=== PATIENT | female | born 1990 | race Caucasian/White ===

== ENCOUNTER 2022-10-12 12:02 | Emergency (ER) | payer MEDICAID, SELFPAY ==
[2022-10-12 12:17] VITALS: BP 153/71; PULSE 97; RESP 20; TEMP 37.1; O2SAT 99; BMI 21.6
--- NOTE | 2022-10-12 12:43 | ED_ITS ---
HPI - General Adult General Chief complaint: Skin/Abscess/Foreign Body Stated complaint: Rash on arms and torso Time Seen by Provider: 10/12/22 12:12 History of Present Illness HPI narrative: Patient is a very pleasant 31-year-old female who has had a rash in her armpits and on her arms and abdomen on and off for the last couple of weeks. She has been to the urgent care couple of times, she tried some Keflex, topical clotrimazole , and even hydrocortisone topically. She reports a red raised rash in her armpits that started and she thought initially was just a burn from shaving. But now she has continued to have raised reddened area and itchy in her armpits and as the other areas mention. No breathing trouble no throat swelling no tongue swelling. She has been generally healthy she is nondiabetic Related Data Home Medications Medication Instructions Recorded Confirmed cephalexin 500 mg capsule 500 mg PO QID 10/12/22 10/12/22 clonidine HCl 0.1 mg tablet 0.1 mg PO BID 10/12/22 10/12/22 fluoxetine 40 mg capsule 40 mg PO DAILY 10/12/22 10/12/22 hydroxyzine HCl 25 mg tablet 25 mg PO Q8H PRN 10/12/22 10/12/22 hyoscyamine sulfate 0.125 mg 0.125 mg sublingual QID PRN 10/12/22 10/12/22 sublingual tablet mirtazapine 7.5 mg tablet 7.5 mg PO QPM 10/12/22 10/12/22 nystatin 100,000 unit/gram topical topical BID 10/12/22 cream rizatriptan 5 mg disintegrating 5 mg PO BID PRN migraine 10/12/22 10/12/22 tablet Previous Rx's Medication Instructions Recorded ciprofloxacin HCl 250 mg tablet 250 mg PO BID #14 tabs 10/12/22 (Cipro) prednisone 20 mg tablet 20 mg PO BID #10 tabs 10/12/22 Allergies Allergy/AdvReac Type Severity Reaction Status Date / Time No Known Drug Allergies Allergy Verified 10/12/22 12:23 Review of Systems Status of ROS: Reports: 6 or more systems reviewed and unremarkable except as noted in History and below PFSH PFS Social History Smoking Status: Never smoker Do you use any of these nicotine containing products: Vaping Products Second hand tobacco smoke exposure: No How often do you have a drink containing alcohol: never AUDIT-C Alcohol total score: 0 Non-prescribed substance use: denies use Exam Narrative: Exam Narrative: Objective: Vital signs unremarkable in general patient is in no apparent distress Patient has a reddened dermatitic type rash in her armpits bilaterally, has almost allergic look but is not urticarial. Couple of small dots on her forearms and in her abdomen area noted as well. Const: Vital Signs, click to edit/add: Vital Signs - 24 hr 10/12/22 12:17 Temperature 98.8 F Pulse Rate [Pulse Oximeter] 97 Respiratory Rate 20 Blood Pressure [Ri ght Upper Arm] 153/71 H Pulse Oximetry 99 Oxygen Delivery Me thod Room Air Course Vital Signs Vital signs: Initial Vital Signs Temperature 98.8 F 10/12/22 12:17 Temperature Source Temporal Artery Scan 10/12/22 12:17 Pulse Rate 97 10/12/22 12:17 Respiratory Rate 20 10/12/22 12:17 Blood Pressure 153/71 H 10/12/22 12:17 Blood Pressure Mean 98 10/12/22 12:17 Blood Pressure Position Sitting 10/12/22 12:17 Pulse Oximetry 99 10/12/22 12:17 Oxygen Delivery Method 10/12/22 12:17 Vital Signs Temperature 98.8 F 10/12/22 12:17 Pulse Rate 97 10/12/22 12:17 Respiratory Rate 20 10/12/22 12:17 Blood Pressure 153/71 H 10/12/22 12:17 Pulse Oximetry 99 10/12/22 12:17 Oxygen Delivery Method 10/12/22 12:17 Temperature 98.8 F 10/12/22 12:17 Pulse Rate 97 10/12/22 12:17 Respiratory Rate 20 10/12/22 12:17 Blood Pressure 153/71 H 10/12/22 12:17 Pulse Oximetry 99 10/12/22 12:17 Oxygen Delivery Method 10/12/22 12:17 Medical Decision Making MDM Narrative Medical decision making narrative: [age] year white female with a history of C diff infection when she had significant pelvic infection and was treated with Septra and clindamycin. She has had no symptoms of that, does not seem to be getting better with couple of days of the Keflex and topical antifungal. At this point I think she has more of an allergic component would give her prednisone 20 mg b.i.d. x5 days, continue to use the clotrimazole 2 times a day, and would switch to Cipro 250 b.i.d. x7 days. Would recommend follow up with regular doctor at that time frame, and dermatologic referral or consider biopsy of the area if not improving. Carefully watch her stool pattern in at this point I think she is at low risk to get recurrent C diff and hopefully this short course of antibiotic would be helpful for her. She was comfortable plan will follow up as directed. Discharge Plan Discharge Clinical Impression: Dermatitis Patient Disposition: Home, Self-Care Condition: Stable Additional Instructions: Discontinue Keflex. Start Cipro 250 b.i.d. x7 days. Continue to use the antifungal cream twice a day on the rashes. Will give you prednisone 20 mg b.i.d. x5 days for the itching and further rash. Recommend follow up with regular doctor next 4-5 days for reassessment certainly sooner changes or concerns she may need to see a skin doctor to work this up more fully if it does not improve. Activity Level: No Restrictions Discharge Diet: Regular Prescriptions: New ciprofloxacin HCl [Cipro] 250 mg tablet 250 mg PO BID Qty: 14 0RF prednisone 20 mg tablet 20 mg PO BID Qty: 10 0RF No Action clonidine HCl 0.1 mg tablet 0.1 mg PO BID cephalexin 500 mg capsule 500 mg PO QID hydroxyzine HCl 25 mg tablet 25 mg PO Q8H PRN nystatin 100,000 unit/gram cream topical BID hyoscyamine sulfate 0.125 mg tablet, sublingual 0.125 mg sublingual QID PRN rizatriptan 5 mg tablet,disintegrating 5 mg PO BID PRN (Reason: migraine) mirtazapine 7.5 mg tablet 7.5 mg PO QPM fluoxetine 40 mg capsule 40 mg PO DAILY Follow Up/Referrals: Sameera Pineda MD [Primary Care Provider] - Stand Alone Forms: [employer] Info Instructions
== END 2022-10-12 12:53 | disposition home or self-care (01) ==
LOC: ED 12:47
PROVIDERS: Emergency Provider Family Medicine; PCP Family Medicine
DX: L30.9 Dermatitis, unspecified (principal)
CPT/HCPCS: 99283

== ENCOUNTER 2022-10-21 10:32 | Emergency (ER) | payer MEDICAID, SELFPAY ==
[2022-10-21 10:38] VITALS: BP 127/99; PULSE 108; RESP 18; TEMP 36.8; O2SAT 99; BMI 21.5
--- NOTE | 2022-10-21 11:15 | ED.SKABFB ---
HPI - Skin/Abscess/Foreign Bdy General Date Seen: 10/21/22 Chief complaint: Skin/Abscess/Foreign Body Stated complaint: Rash Time Seen by Provider: 10/21/22 10:34 Source: patient and family Mode of arrival: ambulatory Limitations: no limitations History of Present Illness HPI narrative: Patient is a 31-year-old female presents here with her mother for evaluation of a rash that she has on her axilla bilaterally, she has been fighting this for approximately 6 weeks told by Dermatology that it is tinea versicolor, yesterday she shave, for a job interview and it has been angry and reddened since. She is taking ketoconazole was on prednisone the past and wonders if she should re good do the prednisone. Has appointment with Dermatology tomorrow, is going to try to talk him into a biopsy. She has Atarax at home but has not taken this. It is very itchy. It was also on her truncal region but the part is gotten improvement. Related Data Home Medications Medication Instructions Recorded Confirmed cephalexin 500 mg capsule 500 mg PO QID 10/12/22 10/12/22 clonidine HCl 0.1 mg tablet 0.1 mg PO BID 10/12/22 10/12/22 fluoxetine 40 mg capsule 40 mg PO DAILY 10/12/22 10/12/22 hydroxyzine HCl 25 mg tablet 25 mg PO Q8H PRN 10/12/22 10/12/22 hyoscyamine sulfate 0.125 mg 0.125 mg sublingual QID PRN 10/12/22 10/12/22 sublingual tablet mirtazapine 7.5 mg tablet 7.5 mg PO QPM 10/12/22 10/12/22 nystatin 100,000 unit/gram topical topical BID 10/12/22 cream rizatriptan 5 mg disintegrating 5 mg PO BID PRN migraine 10/12/22 10/12/22 tablet Previous Rx's Medication Instructions Recorded ciprofloxacin HCl 250 mg tablet 250 mg PO BID #14 tabs 10/12/22 (Cipro) prednisone 20 mg tablet 20 mg PO BID #10 tabs 10/12/22 Allergies Allergy/AdvReac Type Severity Reaction Status Date / Time No Known Drug Allergies Allergy Verified 10/12/22 12:23 Review of Systems Status of ROS: Reports: 10 or more systems reviewed and unremarkable except as noted in History and below PFSH PFSH Social History Smoking Status: Never smoker Do you use any of these nicotine containing products: Vaping Products Second hand tobacco smoke exposure: No How often do you have a drink containing alcohol: never AUDIT-C Alcohol total score: 0 Non-prescribed substance use: denies use Exam Narrative: Exam Narrative: Red erythematous raised rash on axilla bilaterally, almost hypertrophic in nature, this is blanching no evidence of any adenopathy, no evidence of any cracking, I do not think secondary infected. Const: Vital Signs, click to edit/add: Vital Signs - 24 hr 10/21/22 10:38 Temperature 98.2 F Pulse Rate [Right Pulse Oximeter] 108 H Respiratory Rate 18 Blood Pressure [Ri ght Upper Arm] 127/99 H Pulse Oximetry 99 Oxygen Delivery Me thod Room Air Documenting provider has reviewed patient's vital signs: yes Course Course Hospital Course: I discussed with her in her mother, I do not feel that this is a bacterial infection, this seems like more like a hypersensitivity reaction, likely due to the fact she does shave, this could be tinea versicolor, with hypersensitivity, component I would not recommend that she goes on prednisone if they are going to consider doing a biopsy possibly tomorrow. She can use the Atarax for the itching, we also talked about using Selsun Blue, follow-up if signs and symptoms of worsening Vital Signs Vital signs: Initial Vital Signs Temperature 98.2 F 10/21/22 10:38 Temperature Source Temporal Artery Scan 10/21/22 10:38 Pulse Rate 108 H 10/21/22 10:38 Respiratory Rate 18 10/21/22 10:38 Blood Pressure 127/99 H 10/21/22 10:38 Blood Pressure Mean 108 10/21/22 10:38 Blood Pressure Position Sitting 10/21/22 10:38 Pulse Oximetry 99 10/21/22 10:38 Oxygen Delivery Method 10/21/22 10:38 Vital Signs Temperature 98.2 F 10/21/22 10:38 Pulse Rate 108 H 10/21/22 10:38 Respiratory Rate 18 10/21/22 10:38 Blood Pressure 127/99 H 10/21/22 10:38 Pulse Oximetry 99 10/21/22 10:38 Oxygen Delivery Method 10/21/22 10:38 Temperature 98.2 F 10/21/22 10:38 Pulse Rate 108 H 10/21/22 10:38 Respiratory Rate 18 10/21/22 10:38 Blood Pressure 127/99 H 10/21/22 10:38 Pulse Oximetry 99 10/21/22 10:38 Oxygen Delivery Method 10/21/22 10:38 MDM - Skin/Abscess/Foreign Bdy Differential Diagnosis Differential diagnosis: Likely abscess of skin or subcutaneous tissue, viral exanthem, dermatophytosis, urticaria, herpes zoster, allergic reaction to drug, cellulitis, eczema, insect bites, impetigo and contact dermatitis Medical Records Attestation: I reviewed the patient's medical records. Discharge Plan Discharge Clinical Impression: Tinea versicolor, Rash Patient Disposition: Home w/ Parent or Adult Condition: Stable Instructions: Acute Rash (ED), Tinea Versicolor (ED), Cold Compress or Soak (ED) Additional Instructions: Home, rest, follow-up with Dermatology tomorrow, perhaps try the selsun blue, no further shaving, that seemingly exacerbated it. Atarax for the itching. Activity Level: No Restrictions Prescriptions: No Action clonidine HCl 0.1 mg tablet 0.1 mg PO BID cephalexin 500 mg capsule 500 mg PO QID hydroxyzine HCl 25 mg tablet 25 mg PO Q8H PRN nystatin 100,000 unit/gram cream topical BID hyoscyamine sulfate 0.125 mg tablet, sublingual 0.125 mg sublingual QID PRN rizatriptan 5 mg tablet,disintegrating 5 mg PO BID PRN (Reason: migraine) mirtazapine 7.5 mg tablet 7.5 mg PO QPM fluoxetine 40 mg capsule 40 mg PO DAILY ciprofloxacin HCl [Cipro] 250 mg tablet 250 mg PO BID Qty: 14 0RF prednisone 20 mg tablet 20 mg PO BID Qty: 10 0RF Follow Up/Referrals: Sameera Pineda MD [Primary Care Provider] - Stand Alone Forms: [facility] Info Instructions
== END 2022-10-21 11:26 | disposition home or self-care (01) ==
PROVIDERS: Emergency Provider Family Medicine; PCP Family Medicine
DX: B36.0 Pityriasis versicolor (principal); R21 Rash and other nonspecific skin eruption
CPT/HCPCS: 99283

== ENCOUNTER 2024-04-13 12:30 | Outpatient (RCR) | payer MEDICAID, SELFPAY | END 2024-07-05 12:51 | disposition home or self-care (01) | PROVIDERS: PCP Family Medicine; Visit Provider Family Medicine | DX: R10.2 Pelvic and perineal pain (principal); N39.41 Urge incontinence; Z51.89 Encounter for other specified aftercare | CPT/HCPCS: 97112; 97140; 97163; 97530 ==

== ENCOUNTER 2024-08-22 08:32 | Emergency (ER) | payer MEDICAID, SELFPAY ==
[2024-08-22 08:34] VITALS: BP 110/66; PULSE 82; RESP 16; TEMP 37.1; O2SAT 100; BMI 20.5
--- OUTSIDE RECORDS SUMMARY | 2024-08-22 08:34 | XMS_ITS | Data Portability ---
Author Organization [place] - [facility] [place] [facility] Address [address] [place] [address] Assessment No assessment recorded. Plan of Treatment Reminders Order Date Submit Date Provider Last Modified By Organization Details Last Modified Time Details Appointments None record ed. Lab None record ed. Referral None record ed. Procedures None record ed. Surgeries None record ed. Imaging None record ed. Medication Orders None record ed. Patient TargetsNo targets recorded. Patient Instructions Encounter Date Encounter Id Patient Instructions Last Modified By Organization Details Last Modified Time 08/27/2016 [id number] discussed IUD We discussed risks and benefits of Mirena IUD as follows: Benefits of IUD use: Highly effective (less than 1% risk of ) Long-acting Safe with few side effects Rapidly reversible Cost-effective over time Convenient (requires single visit to place IUD) Decreased menstrual flow and cramps, 50% of cases achieve amenorrhea Risks/side effects of the Mirena IUD: Cramping Uterine infection Abnormal uterine bleeding Expulsion Uterine perforation Contraceptive failure Acne, facial hair, hair loss I informed the patient that she may experience mild spotting and cramping for a few days after the procedure. If these symptoms are severe and not relieved with ibuprofen, then she should come back to the office for an evaluation. The following points were discussed with the patient: She may take ibuprofen 800 mg before or after IUD insertion. Advise her to feel for the IUD strings after her menses each month. She should use a second method of contraception until after her next menses (if the IUD is placed during the luteal phase). follow-up appointment after your patient's next menses to check the presence of IUD strings and address any concerns. She may conceive immediately after removal of the IUD. The IUD is usually removed because the patient experiences adverse effects or medical complications, or the IUD expires. benefits investigation started [email or web address] Not available 08/30/2016 22:12:50 Reason for Referral None Reported. Problems No Known Problems Medical Equipment None Reported. Allergies No known drug allergies Medications Name Sig Start Date Stop Date Status Note LastModified by Organization Details LastModified Time hyoscyamine 0.125 mg sublingual tablet active Not Available Not Available Not Available NuvaRing 0.12 mg-0.015 mg/24 hr vaginal 2016 completed Not Available Not Available Not Available bupropion HCl XL 150 mg 24 hr tablet, extended release 2016 completed Not Available Not Available Not Available NuvaRing active Not Available Not Avai lable Not Available Vitals Date Recorded Body height Body weight Body mass index (BMI) Heart rate Systolic blood pressure Diastolic blood pressure Provider Name and Address Organization Details Last Updated DateTime 7 167.64 cm 94522.8 2 g 20.7 kg/m2 69 /min 106 mm[Hg] 68 mm[Hg] [place] [facility]. 7 15:01:29 Social History Question Answer Notes LastModified by Organizat ion Details LastModified Time Tobacco Smoking Status Former Smoker Not Available [facility] 05/29/2020 03:21:56 At What Age Did You Start Smoking Tobacco? 2016 [id number] Information not available 05/29/2020 Sex: Unknown Functional Status None recorded. Mental Status None recorded. Family History Relationship Description Onset Age of this Age Resolved Age Notes LastModified by Organization Details LastModified Time Mother Malignant tumor of breast 54 [email or web address] Not available 08/27 22:21:38 Maternal Aunt Malignant tumor of ovary [email or web address] Not available 08/27 22:21:50 Medical History Condition Response Anesthesia complications N High Blood Pressure N Heart Conditions N Breast Cancer N Kidney or Bladder Problems N Thyroid Problems N Depression Y Lung Disease N GI Problems N Defects or Inherited Disease N Breast Problem N Anemia N Psychiatric Illness N Anxiety Disorder Y Diabetes N Ovarian Cancer N Arthritis N Headaches or Migraines N Infertility N Cancer N Asthma N Endometriosis N Hepatitis N Hypertension N Gynecological History Statement/Question Response Current Control Method Vaginal Rin g LMP Definite Obstetrics History GPAL:G 0 P 0 0 0 0 Past Encounters Encounter ID Performer Location Encounter Start Date Encounter Closed Date Diagnosis/Indication Diagnosis SNOMED-CT Code Diagnosis ICD10 Code Diagnosis Note [id number] Nata Benavides MD [facility] [address] [place] [address] 08/27/2016 12:38:46 08/27/2016 13:39:05 Contraception care 753073577 Z30.40 Health Concerns Section Related Observation LastModified by Organization Detai ls LastModified Time None Recorded Concern Status LastModified by Organization Details LastModified Time None Recorded Advance Directives Directive None Recorded Payers Encounter Date Sequence Insurance Name Policy Number Policy Pizarro Covered Member ID Pizarro Member ID Guarantor Name 08/27/2016 1 [facility] [id number] Terra Eviebrionna [id number] Terra Mazariegos 08/27/2016 2 [employer] [id number] Terra Mazariegos [id number] Terra Eviebrionna Notes Date Note Type Note Provider Name and Address Organization Details Recorded Time 08/27/2016 text/html 25yo in for IUD discussion. Pt desires retirement form of control such as IUD. Pt currently using Nuvaring which she does not keep [place] [address], [place], [address], [facility]. 08/30/2016 22:13:48 OBGyn Episode No OBEpisode recorded.
--- OUTSIDE RECORDS SUMMARY | 2024-08-22 08:34 | XMS_ITS | Referral Summary ---
Author Organization [place] Address [address] [facility] [facility] [place] [address] Care Team Providers Care Thread Milling Machine Set Up Operator Name Role Phone Sameera Pineda MD Primary Care Provider [phone] Allergies No known active allergies Medications norethindrone (MICRONOR) 0.35 MG tablet Take 0.35 mg by mouth daily Active ferrous sulfate (FEROSUL) 325 (65 Fe) MG tablet Take 325 mg by mouth daily (with breakfast) Active hyoscyamine (LEVSIN) 0.125 MG tablet Take 0.125 mg by mouth as needed Active omeprazole 20 MG tablet Take 20 mg by mouth daily Active mirtazapine (REMERON) 15 MG tablet Take 15 mg by mouth At Bedtime Active ibuprofen (ADVIL/MOTRIN) 600 MG tabletIndicatio ns:Status post laparoscopy Take 1 tablet (600 mg) by mouth every 6 hours as needed for other (mild and/or inflammatory pain) 30 tablet 0 Active acetaminophen (TYLENOL) 325 MG tabletIndicatio ns:Status post laparoscopy Take 2 tablets (650 mg) by mouth every 4 hours as needed for mild pain 50 tablet 0 Active oxyCODONE (ROXICODONE) 5 MG tabletIndicatio ns:Status post laparoscopy Take 1-2 tablets (5-10 mg) by mouth every 4 hours as needed for moderate to severe pain 15 tablet 0 Active Active Problems Problem Noted Date Diagnosed Date Pelvic pain in female 07/05/2020 Dysmenorrhea 07/05/2020 Status post laparoscopy 07/05/2020 Social History Tobacco Use Types Packs/Day Years Used Date Smoking Tobacco: Former Cigarettes Q uit: 06/28/2020 Smokeless Tobacco: Never Comments:1 pack a week. Alcohol Use Standard Drinks/Week Comments Never 0 (1 standard drink = 0.6 oz pur e alcohol) AUDIT-C Answer Date Recorded Q1: How often do you have a drink containing alc ohol? Never 07/05/2020 Average Number of Drinks Not on file 020 Frequency of Binge Drinking Not on file 10/2019 Adolescent Education Answer Date Record ed Getting School Help Needed Not on file 05/09 Comments No Sex and Gender Information Value Date Recorded Sex Assigned at Not on file Legal Sex Female 3:07 AM [employer] REM[employer] SUPER[employer] Gender Identity Not on file Sexual Orientation Not on file Last Filed Vital Signs Vital Sign Reading Time Taken Comments Blood Pressure 113/57 07/05/2020 4:18 PM [employer] SUPER[employer] Pulse 83 07/05/2020 4:00 PM [employer] SUPERVISOR Temperature 37.1 C (98.8 F) 07/05/2020 3:45 PM [employer] REMOVAL SUPERVISOR Respiratory Rate 14 07/05/2020 4:18 PM [employer] REMOVAL SUPERVISOR Oxygen Saturation 99% 07/05/2020 4:18 PM [employer] REMOVAL SUPERVISOR Inhaled Oxygen Concentration - - Weight 57.3 kg (126 lb 4.8 oz) 07/05/2020 10:56 AM [employer] REMOV[employer] SUPERVISOR Height 170.2 cm (5' 7) 07/05/2020 10:56 AM [employer] REMOV[employer] SUPERVISOR Body Mass Index 19.78 07/05/2020 10:56 AM [employer] REMOVAL SUPERVISOR Plan of Treatment Not on file Advance Directives For more information, please contact: [phone] Healthcare Agents on File Name Relationship Healthcare Agent Relationship Communication Saranya Gabriel Grandparent Fourth [place] te Health Care Agent Care Teams Thread Milling Machine Set Up Operator Relationship Specialty Start Date End Date Sameera Pineda MD [facility] [address] [place] [address] PCP - General 07/03/20
--- OUTSIDE RECORDS SUMMARY | 2024-08-22 08:34 | XMS_ITS | Clinical Summary ---
Author Organization [facility] Address [place], [place] [address] Care Team Providers Care Varitypist Name Role Phone Sameera Pineda MD Primary Care Provider Allergies Active Allergy Reactions Criticality Noted Date Comments Nickel 12/09/2010 Medications multivitamins with minerals tablet Take 1 tablet by mouth once daily. 0 09/24/19 10 Active cholecalciferol (VITAMIN D3) 1,000 unit capsule Take 1 Capsule (1,000 units) by mouth once daily. 0 05/21/20 22 Active tacrolimus 0.1% (PROTOPIC) 0.1 % ointment APPLY TWICE A DAY TO AFFECTED AREA IN ARMPITS. ONCE RESOLVED SLOWLY TAPER OFF AND CONTINUE TWICE WEEKLY FOR MAINTENANCE 10/25/19 23 Active triamcinolone (ARISTOCORT) 0.1 % ointment APPLY TO AFFECTED AREAS ON ARMS AND GROIN AREA 2 TIMES DAILY FOR 2 WEEKS AT A TIME. TAKE 2 WEEKS OFF AND REPEAT NEEDED 10/28/19 23 Active loratadine (CLARITIN) 10 mg tablet Take 10 mg by mouth once daily if needed. 11/03/19 23 Active hydrocortisone (HYTONE) 2.5 % ointment APPLY TO AFFECTED AREAS OF ARMPITS 1-2X DAILY WHEN NOT USING TRIAMCINOLONE. 11/08/19 23 Active hyoscyamine sublingual (LEVSIN SL) 0.125 mg sublIndications:Ir ritable bowel syndrome, unspecified type PLACE 1 TABLET UNDER THE TONGUE 4 TIMES DAILY IF NEEDED FOR COLIC(ABDOMINAL CRAMPS) 368 Tablet 06/05/20 Active sulfacetamide-sulf ur , 10 - 5%, (SULFACET-R) 10-5 % (w/w) clsr APPLY TO AFFECTED AREAS ON ARMS 2-3X A WEEK. LATHER AND LET SIT FOR SEVERAL MINUTES BEFORE RINSING. 05/27/20 Active risankizumab-rzaa (Skyrizi) 150 mg/mL subcutaneous pen Inject 150 mg subcutaneous every 12 weeks. 02/12/20 Active meloxicam 15 mg tablet Take 15 mg by mouth once daily if needed. Active azelastine 137 mcg/actuation (ASTELIN) nasal spray Inhale 1 [place] into affected nostril(s) 2 times daily if needed for Rhinitis. Active fluticasone (50 mcg per actuation) nasal solution (FLONASE) Inhale 2 Sprays into affected nostril(s) once daily if needed for Rhinitis. Active aluminum chloride (Drysol) 20 % external solutionIndication s:Hyperhidrosis of axilla Apply topically to affected area(s) at bedtime. Apply once daily at bedtime; once excessive sweating has stopped, may decrease to once or twice weekly, or as needed. Wash treated area in the morning. 50 mL 02/02/20 24 Active omeprazole 20 mg tabletIndications: Chronic GERD Take 1 Tablet (20 mg) by mouth once daily before a meal. 90 Tablet 02/02/20 24 Active rizatriptan (Maxalt-OUTREACH WORKER) 5 mg disintegrating tabletIndications: Migraine with aura, not intractable, without status migrainosus Place 1 Tablet (5 mg) on the tongue 2 times daily if needed for Migraine. Give at minimum 2hrs apart. Max Dose: 30mg per 24hrs. 12 Tablet 3 02/02/20 24 Active rizatriptan (MAXALT) 10 mg tabletIndications: Migraine with aura and without status migrainosus, not intractable Take 1 Tablet (10 mg) by mouth every 2 hours if needed for Migraine. May repeat dose after 2 hours if symptoms persist. Max Dose: 20mg per 24hrs. 12 Tablet 3 02/29/20 24 Active ondansetron (ZOFRAN ODT) 4 mg disintegrating tabletIndications: Nausea Place 1 Tablet (4 mg) on the tongue every 8 hours if needed for Nausea/Vomiting. 20 Tablet 02/29/20 24 Active SPIRONOLACTONE ORAL Take 100 mg by mouth once daily. Active estradioL (ESTRACE) 0.01% (0.1 mg/g) vaginal creamIndications:V ulvovaginal pruritus,Psoriasis of vulva Insert 1 g into the vagina at bedtime. 1 Each 5 04/22/20 24 Active mirtazapine (REMERON) 7.5 mg tabletIndications: Severe major depression without psychotic features (HC) Take 0.5-1 Tablets (3.75-7.5 mg) by mouth at bedtime. 30 Tablet 2 06/02/20 24 Active lamoTRIgine (LaMICtal) 100 mg tabletIndications: Severe major depression without psychotic features (HC),Generalized anxiety disorder Take 3 Tablets (300 mg) by mouth once daily. 45 Tablet 07/29/20 24 Active DULoxetine (CYMBALTA) 30 mg Delayed-release capsuleIndications :Severe major depression without psychotic features (HC),Generalized anxiety disorder Take 1 Capsule (30 mg) by mouth once daily. 15 Capsule 07/29/20 24 Active Hospital, Clinic, or Other Facility Administered Medication Ordered Dose Route Frequency Start Date End Date Status medroxyPROGESTERone acetate (contraceptive) (DEPO-PROVERA) injection 150 mgIndications:Uses contraception 150 mg IM Q 3 MONTHS (12 WEEKS) 12/23/2023 11/23/2024 Active Active Problems Problem Noted Date Diagnosed Date Endometriosis 10/29/2023 Psoriatic arthritis 10/29/2023 Severe bipolar II disorder, depressed, with anxious distress 10/13/2023 Myofascial pain 10/03/2023 Bipolar 1 disorder, depressed 10/02/2023 Borderline personality disorder 10/02/2023 GERSON (generalized anxiety disorder) 10/02/2023 PTSD (post-traumatic stress disorder) 10/02/2023 Cannabis use disorder 10/02/2023 Suicidal ideations 02/14/2023 Pap smear for cervical cancer screening 02/01/20 23 Overview (03/06/2023): 01/2015 LSIL 08/2017 ASCUS/HPV negative 11/2018 NIL 01/2020 NIL/HPV negative 01/2023 NIL/HPV negative. Plan: Pap/HPV due 02/2028. IBS (irritable bowel syndrome) 09/11/2022 Protein-calorie malnutrition, unspecified severi ty 09/05/2021 Dysmenorrhea 07/05/2020 Pelvic pain in female 07/05/2020 Status post laparoscopy 07/05/2020 Vegetarian diet 02/21/2013 Moderate episode of recurrent major depressive d isorder 11/20/2009 Severe major depression without psychotic featur es 09/18/2009 Anxiety state, unspecified 09/18/2009 Bipolar 2 disorder Polyp of colon Resolved Problems Problem Noted Date Diagnosed Date Resolved Date Irritable bowel syndrome 01/15/201312/2022 Parent-child relationship problem 09/19/2009 02/04/2023 Dysthymic disorder 09/18/2009 Vegetarian diet 09/18/2009 09/25/2009 Depressive disorder, not elsewhere classified 10/03/19 09 09/18/2009 Anxiety state, unspecified 06/21/2008 0 10/02/2008 Adjustment disorder with mix ed anxiety and depressed mood 06/21/2008 09/18/2009 Routine infant or child health check 03/03/2007 06/28/2008 Encounters Date Type Department Care Team Description 08/22/2024 Nurse Triage [facility] [address] [place] [address] Sameera Pineda MD Headache 08/22/2024 Telephone [facility] [address] [place] [address] Sameera Pineda MD Referral (Migraines ) 08/04/2024 Refill [facility] [address] [place] [address] Rosie Botello NP Refill Request (Lamotrigine) 07/21/2024 3:00 PM TAVERN KEEPER Telemedicine [facility] [address] [place] [address] Rosie Botello NP Follow Up (Appt not completed today- pt requested refills to bridge to appt with new psychiatry provider in 3 weeks) 07/21/2024 Travel 07/21/2024 Telephone [facility] [address] [place] [address] Rosie Botello NP Concerns 07/12/2024 10:20 AM TAVERN KEEPER Office Visit [facility] [address] [place] [address] Get Barry MD Follow Up (Follow up migraines ) 07/11/2024 Travel 07/02/2024 Refill [facility] [address] [place] [address] Rosie Botello NP Refill Request (Duloxetine) 06/11/2024 3:35 PM TAVERN KEEPER Office Visit [facility] [address] [place] [address] Tatiana White NP Shoulder Injury 06/11/2024 Travel 06/10/2024 Telephone [facility] [address] [place] [address] Rosie Botello NP Follow Up 06/02/2024 1:30 PM CDT Telemedicine [facility] [address] [place] [address] Rosie Botello NP Telehealth; Medication Management 06/01/2024 Travel 05/25/2024 2:20 PM CDT Office Visit [facility] [address] [place] [address] Get Barry MD Consult (Migraine with aura and with status migrainosus Ref: Dr. Pineda /MR Head/Brain 08/09/20 ) 05/25/2024 Travel from Last 3 Months Immunizations Name Administration Dates Next Due COVID-19 vaccine (Pfizer-Bio NTech 30mcg/0.3mL) 12YO+ BIVALENT PF, MDV 05/21/2022 COVID-19 vaccine (Pfizer-Bio NTech 30mcg/0.3mL) PF, MDV 05/23/2021,09/13/2020,08/23/2020 DTP 03/11/1994, 3,04/12/1993,03/08 DTaP 01/05/1998 HIB HbOC (HibTITER) 03/11/1994, 3,04/12/1993,03/08 Hepatitis B (Peds) 01/08/1999,07/31/1998, 998 Human Papilloma Virus Vaccine 02/08/2010, 009,08/21/2008 Influenza, IIV4 07/21/2023, 2,05/23/2021,04/25,10/07/2019 MENINGOCOCCAL VACCINE 2 VIAL 2MO-55YO (MENVEO) 06/10/2011 MMR 07/31/1998,03/11/1994 Meningococcal Vaccine (Menactra) 03/28/2005 Meningococcal Vaccine (Menomune) 03/28/2005 Oral Polio Vaccine 01/05/1998, 4,04/12/1993,03/08 Pneumococcal Conj 20-valent (Prevnar 20) 05/21/2022 Tdap 02/22/2015,03/28/2005 Family History Medical History Relation Name Comments GI Disease Father stomach ulcers Other Father back problems Cancer-ovarian Maternal Aunt Cancer-pancreatic Maternal Grandfather Other Maternal Grandfather blood c lot, smoker, alcoholic Hyperlipidemia Maternal Grandmother Other Maternal Grandmother polio, C diff, Cancer-breast Mother Hyperlipidemia Mother Other Mother IBS Psychiatric illness Mother anxiety Other Paternal Grandfather ulcers Good Health Paternal Grandmother Good Health Sister 3 stomach issues Good Health Sister 4 stomach issues Relation Name Status Comments Father Alive Maternal Aunt Maternal Grandfather Alive Maternal Grandmother Alive Mother Alive Paternal Grandfather Alive Paternal Grandmother Alive Sister 1 Alive Sister 2 Alive Sister 3 Sister 4 Social History Tobacco Use Types Packs/Day Years Used Date Smoking Tobacco: Former Cigarettes 0.3 11.1 1 08/14/2009 - 08/07/2021 Smokeless Tobacco: Never Tobacco Cessation:Counseling Given: Yes Comments:2 per week Alcohol Use Standard Drinks/Week Comments Not Currently 0 (1 standard drink = 0.6 oz pur e alcohol) twice per year PHQ-2 Answer Date Recorded PHQ-2 TOTAL SCORE 3 07/21/2024 Social Connections Answer Date Recorded Do you often feel lonely or isolated from those around you? 4 10/01/2023 Alcohol Use Answer Date Recorded How often do you have a drink containing alcohol ? 0 10/01/2023 How many drinks containing a lcohol do you have on a typical day when you are drinking? 0 10/01/2023 How often do you have five or more drinks on one occasion? 0 10/01/2023 Financial Resource Strain Answer Date R ecorded Difficulty of Paying Living Expenses 3 07/20/2023 Difficulty of Paying Living Expenses Not on file 07/20/2023 Food Insecurity Answer Date Recorded Do you worry your food will run out before you are able to buy more? 1 10/01/2023 Transportation Needs Answer Date Record ed Does lack of transportation keep you from medica l appointments? 1 10/01/2023 Does lack of transportation keep you from work, meetings or getting things that you need? 1 10/01/2023 Housing Stability Answer Date Recorded What is your housing situation today? 1 10/01/2023 Interpersonal Safety Answer Date Record ed Are you being hit, kicked, p ushed or yelled at (see row info)? No 10/21/2023 Interpersonal Safety Abuse 12 - 18 Not on file 10/21/2023 Interpersonal Safety Ambulatory Vulnerability No t on file 10/21/2023 Utilities Answer Date Recorded Do you have trouble paying f or utilities (for example, heat, electricity, water, phone)? 1 10/01/2023 Comments No Sex and Gender Information Value Date Recorded Sex Assigned at Not on file Legal Sex Female 5:27 AM TAVERN KEEPER Gender Identity Not on file Sexual Orientation Not on file Occupation Industry Job Start Date Job End Date student -- [employer] Not on file Not on file Not on file Obstetrics History Para Term AB IAB SAB Ectopic Multiple Livin g Live Births 0 0 0 0 0 0 0 0 0 0 Last Filed Vital Signs Vital Sign Reading Time Taken Comments Blood Pressure 112/73 07/12/2024 10:18 AM TAVERN KEEPER Pulse 97 07/12/2024 10:18 AM TAVERN KEEPER Temperature 36.3 C (97.3 F) 06/11/2024 3:52 PM TAVERN KEEPER Respiratory Rate 16 06/11/2024 3:52 PM TAVERN KEEPER Oxygen Saturation 100% 07/12/2024 10:18 AM TAVERN KEEPER Inhaled Oxygen Concentration - - Weight 57.7 kg (127 lb 1.6 oz) 07/12/2024 10:18 AM TAVERN KEEPER Height 167.6 cm (5' 6) 01/06/2024 10:14 AM CDT Body Mass Index 20.51 01/06/2024 10:14 AM CDT Plan of Treatment Upcoming Encounters Date Type Department Care Team (Late st Contact Info) Description 08/24/2024 11:30 AM TAVERN KEEPER Telemedicine [facility] [address] [place] [address] Rosie Botello NP [address] [place] [address] Health Maintenance Due Date Last Done Comments COVID-19 vaccine series ( season) 2024 05/21/2022, 05/23/2021, 09/13/2020, Additional history exists Influenza for age 9-49 04/03/2024 , 05/21/2022, 05/23/2021, Additional history exists BMI (ht and wt on same day) for age 18+ 01/05/2025 01/06/2024, 02/04/2023, 09/09/2022, Additional history exists Tetanus booster 02/22/2025 02/22/2015, 03/28/2005 Depression screening for age 12+ 07/21/2025 07/21/2024, 06/02/2024, 05/04/2024, Additional history exists Pap test for age 21-65 02/05/2028 , 02/04/2023, 01/03/2020, Additional history exists Tdap Completed 02/22/2015, 03/28/2005 HIV for age 15-65 Completed 09/02/2017, 06/10/2011 Hepatitis C screening for age 18-79 Completed 11/12/2018, 06/10/2011 Pneumococcal series for age 6-49 Aged Out 05/21/2022 No longer eligible based on patient's age to complete this topic Procedures Procedure Name Priority Date/Time Associated Diagnosis Comments HPV HIGH RISK Routine 02/04/2023 2:48 PM CDT Cervical cancer screening ANTI HCV Routine 11/12/2018 9:25 AM CDT Contact with and (suspected) exposure to viral hepatitis ANTI HIV 1/2 Routine 09/02/2017 1:53 PM TAVERN KEEPER Screen for STD (sexually transmitted disease) from Last 3 Months or Most Recently Relevant to Health Maintenance Results * HPV HIGH RISK (02/04/2023 2:48 PM CDT) TYPE 16 Negative Negative 02/11/2023 11:32 AM CDT [facility] TYPE 18 Negative Negative 02/11/2023 11:32 AM CDT [facility] OTHER HIGH RISK TYPES Negative Negative 02/11/2023 11:32 AM CDT [facility] Other (Cervical) Non-Blood / Unknown 02/04/2023 2:48 PM CDT 02/05/2023 2:02 PM CDT Narrative [facility] - 02/11/2023 11:32 AM CDT HPV types 16, 18, 31, 33, 35, 39, 45, 51, 52, 56, 58, 59, 66 and 68 DNA were undetectable or below the pre-set threshold. Methodology: Emil Adria 4800 HPV Test Sameera Pineda MD MICROBIOLOGY Final Resul t Performing Organization Address City/[facility]/ZIP Co de Phone Number [facility] [address] [place] [address], * ANTI HCV (11/12/2018 9:25 AM CDT) HEPATITIS C ANTIBODY Non-React maria alejandra Non-React maria alejandra 11/12/2018 4:05 PM CDT [facility] Comment:Antibodies to HCV no t detected; does not exclude the possibility of exposure to HCV. Blood BLOOD SPECIMEN / Unknown Venipuncture / Unknown 11/12/2018 9:25 AM CDT 11/12/2018 9:25 AM CDT Sameera Pineda MD SEND OUTS Final Resul t [facility] [address] [place] [address], * ANTI HIV 1/2 (09/02/2017 1:53 PM TAVERN KEEPER) HIV-1/HIV-2 ANTIBODY Non-Reacti ve Non-Reacti ve 09/02/2017 8:18 PM TAVERN KEEPER [facility] Blood BLOOD SPECIMEN / Unknown Venipuncture / Unknown 09/02/2017 1:53 PM TAVERN KEEPER 09/02/2017 1:53 PM TAVERN KEEPER Narrative [facility] - 09/02/2017 8:18 PM TAVERN KEEPER HIV-1 p24 and HIV-1/HIV-2 Ab not detected us Lu SHAH SEND OUTS Final Resu lt Performing Organization Address City/[facility]/ZIP Co de Phone Number [facility] [address] [place] [address], from Last 3 Months or Most Recently Relevant to Health Maintenance Additional Health Concerns Infection Onset Date Last Indicated C diff History Comment:+ C diff test on 04/25/2020. Enteric Precautions are not required provided: 1) >3 weeks since positive C diff test; 2) diarrhea resolved; and 3) patient has completed CDI antibiotics (excluding vanco taper). C. diff testing or Enteric Precautions are not required on subsequent admissions unless patient is presenting with C. diff symptoms. 02/12/2023 02/12/[address] [facility] [employer] [place] ONLY Advance Directives * Full Code (Latest Code Status on File) Date Activated Date Inactivated Comments 10/01/2023 10:13 PM 10/05/2023 8:39 PM Question Answer Comments Code Status Discussion: Reviewed Preferences * Full Code Date Activated Date Inactivated Comments 02/12/2023 7:50 PM 02/17/2023 12:32 PM Question Answer Comments Code Status Discussion: Reviewed Preferences * Full Code Date Activated Date Inactivated Comments 01/06/2023 1:17 PM 01/06/2023 6:00 PM Question Answer Comments Code Status Discussion: Discussed * Full Code Date Activated Date Inactivated Comments 09/17/2009 4:21 PM 09/24/2009 2:52 PM Care Teams Varitypist Relationship Specialty Start Date End Date [place] [address] PCP - General Family Practice 01/03/20
--- OUTSIDE RECORDS SUMMARY | 2024-08-22 08:34 | XMS_ITS | Clinical Summary ---
Author Organization [place] Address [address] [facility] [place] [address] Care Team Providers Care Resistance Welder Name Role Phone Smaeera Pineda MD Primary Care Provider [phone] Allergies No known active allergies Medications norethindrone [...] on file Legal Sex Female 3:07 AM RN PRODUCTION Gender Identity Not on file Sexual Orientation Not on file Last Filed Vital Signs Vital Sign Reading Time Taken Comments Blood Pressure 113/57 07/05/2020 4:18 PM RN PRODUCTION Pulse 83 07/05/2020 4:00 PM RN PRODUCTION Temperature 37.1 C (98.8 F) 07/05/2020 3:45 PM RN PRODUCTION Respiratory Rate 14 07/05/2020 4:18 PM RN PRODUCTION Oxygen Saturation 99% 07/05/2020 4:18 PM RN PRODUCTION Inhaled Oxygen Concentration - - Weight 57.3 kg (126 lb 4.8 oz) 07/05/2020 10:56 AM RN PRODUCTION Height 170.2 cm (5' 7) 07/05/2020 10:56 AM RN PRODUCTION Body Mass Index 19.78 07/05/2020 10:56 AM RN PRODUCTION Plan of Treatment Health Maintenance Due Date Last Done Comments ANNUAL REVIEW OF HM ORDERS 1992 HIV SCREENING 12/07/2007 HEPATITIS C SCREENING 2010 YEARLY PREVENTIVE VISIT 02/05/2024 02/05/20, 05/23/2021, 04/25/1997, Additional history exists COVID-19 Vaccine ( season) 2024 05/21/2022, 05/23/2021, 09/13/2020, Additional history exists INFLUENZA VACCINE (#1) 2024 3, 05/21/2022, 05/23/2021, Additional history exists PHQ-2 (once per calendar year) 2024 DTAP/TDAP/TD IMMUNIZATION (8 - Td or Tdap) 02/22/2025 02/22/2015, 03/28/2005, 01/05/1998, Additional history exists ADVANCE CARE PLANNING 08/17/2025 08/17/2020 PAP 02/04/2026 02/04/2023 RSV VACCINE (1 - 1-dose 75+ series) 12/07/2067 HEPATITIS B IMMUNIZATION Completed 999, 07/31/1998, 06/26/1998 HPV IMMUNIZATION Completed 02/08/2010, , 08/21/2008 MENINGITIS IMMUNIZATION Completed 06/10/20 11, 03/28/2005, 03/28/2005 Pneumococcal Vaccine: Pediatrics (0 to 5 Years) and At-Risk Patients (6 to 49 Years) Aged Out 05/21/2022 No longer eligible based on patient's age to complete this topic RSV MONOCLONAL ANTIBODY Aged Out No l onger eligible based on patient's age to complete this topic Advance Directives For more information, please contact: [phone] Healthcare Agents on File Name Relationship Healthcare Agent Relationship Communication Saranya Rios Grandparent Fourth Alterna Health Care Agent Care Teams Resistance Welder Relationship Specialty Start Date End Date Sameera Pineda MD [facility] [address] [place] [address] PCP - General 07/03/20
--- OUTSIDE RECORDS SUMMARY | 2024-08-22 08:35 | XMS_ITS | Encounter Summary ---
Author Organization [facility] Address [address] [place] [address] Care Team Providers Care Carbon Paper Coating Supervisor Name Role Phone Tiffanie Robledo MD Primary Care Provider Lisandra jones Encounter Details Date Type Department Care Team (Latest Contact Info) Description 11/11/1994 Orders Only Tiffanie Robledo MD [address] [employer] [id number] [place] [address] Social History Tobacco Use Types Packs/Day Years Used Date Smoking Tobacco: Never Assessed Sex and Gender Information Value Date Recorded Sex Assigned at Not on file Gender Identity Not on file Sexual Orientation Not on file documented as of this encounter Plan of Treatment Not on file documented as of this encounter Visit Diagnoses Not on filedocumented in this encounter Care Teams Carbon Paper Coating Supervisor Relationship Specialty Start Date End Date Tiffanie Robledo MD [address] [employer] [place] [id number] [place] [address] PCP - General 07/16/1996 documented as of this encounter
--- OUTSIDE RECORDS SUMMARY | 2024-08-22 08:35 | XMS_ITS | Clinical Summary ---
Author Organization [facility] Address [address], [place] [address] Care Team Providers Care Pillowcase Cutter Name Role Phone Tiffanie Robledo MD Primary Care Provider Lisandra jones Source Comments You are receiving this document as you are listed as the primary care provider,follow-up provider, or the patient has been referred to you for consultation.This is in compliance with the Medicare and[facility] Systemcaid EHR Incentive Program,which states Providers who transition their patient to another setting of careor provider of care or refers their patient to another provider of care shouldprovide summary care record for each transition of care or referral. [employer] Allergies No known active allergies Medications Medication Sig Dispensed Refills Start Date End Date Status mirtazapine (REMERON) 7.5 MG tablet Take 1 Tablet (7.5 mg) by mouth daily at bedtime. Active QUEtiapine (SEROQUEL) 50 MG tablet Take 2 Tablets (100 mg) by mouth daily. Active SKYRIZI PEN 150 MG/ML SOAJ pen injection Inject 1 mL (150 mg) subcutaneously every 12 weeks. 02/11/2023 Active rizatriptan (MAXALT-METAL TANK ERECTOR) [address] 1 Tablet (5 mg) under tongue two times daily as needed for Headache. 02/04/2023 Active Hyoscyamine Sulfate SL 0.[address] 1 Tablet (0.125 mg) under tongue 4 times daily as needed. 02/04/2023 Active hydrOXYzine HCl (ATARAX) 25 MG tablet Take 1-2 Tablets (25-50 mg) by mouth every 6 hours as needed for Anxiety or Itching. 02/19/2023 Active benztropine (COGENTIN) 1 MG tablet Take 1 Tablet (1 mg) by mouth as needed. 04/10/2023 Active azelastine (ASTELIN) 0.1 % nasal solution Place 2 Sprays into both nostrils two times a day. Active fluticasone propionate (FLONASE) 50 MCG/ACT nasal solution 2 Sprays by Nasal route daily. 04/21/2023 Active clobetasol (TEMOVATE) 0.05 % cream Apply topically two times a day. Active medroxyPROGESTERone (DEPO-PROVERA) 150 MG/ML injection Inject 150 mg intramuscularly every 90 days. Active Meloxicam (MOBIC) 15 MG tablet Take 1 Tablet (15 mg) by mouth daily. 30 Tablet 3 08/06/2023 Active lamoTRIgine (LAMICTAL) 25 MG tablet Take 1 Tablet (25 mg) by mouth daily. 11/06/2023 Active GOODSENSE NICOTINE [address] 1 Lozenge (4 mg) between cheek and gum every 1 hour as needed for Smoking Cessation. 08/26/2023 Active Immunizations Name Administration Dates Next Due DTP 03/08/1993 DTP-Hib (Tetramune) 03/11/1994,06/10/1993,1992 Hib (HbOC) 03/08/1993 MMR 03/11/1994 OPV, Trivalent (Orimune or tOPV) 03/11/1994,04/03,03/08/1993 Social History Tobacco Use Types Packs/Day Years Used Date Smoking Tobacco: Former Cigarettes Tobacco Cessation:Counseling Given: Not Answered Sex and Gender Information Value Date Recorded Sex Assigned at Not on file Gender Identity Not on file Sexual Orientation Not on file Last Filed Vital Signs Vital Sign Reading Time Taken Comments Blood Pressure 109/76 01/06/2024 3:20 PM CDT Pulse 90 01/06/2024 3:20 PM CDT Temperature - - Respiratory Rate - - Oxygen Saturation - - Inhaled Oxygen Concentration - - Weight 70.3 kg (155 lb) 01/06/2024 3:20 PM CDT Height 169.5 cm (5' 6.75) 05/06/2023 1:55 PM CD T Body Mass Index 24.46 05/06/2023 1:55 PM CDT Plan of Treatment Health Maintenance Due Date Last Done Comments Cervical Cancer Screening Due 1992 Hep C Screening (Preventive Services) 1992 Adult Preventive Visit 2010 7, 01/18/1996, 03/11/1994, Additional history exists HepB (1) 12/07/2011 COVID-19 Vaccine ( season) 2024 05/21/2022, 05/23/2021, 09/13/2020, Additional history exists Influenza (#1) 2024 07/21/2023, 05/03, 05/23/2021, Additional history exists DTaP/Tdap/Td (8 - Tdap) 02/22/2025 02/23/20 15, 03/28/2005, 01/05/1998, Additional history exists Zoster/Shingles (1 of 2) 2042 Hib Completed 03/11/1994, 0 04/1994, 06/10/1993, Additional history exists IPV (Polio) Completed 01/05/1998, 0 04/1994, 04/12/1993, Additional history exists HPV Vaccine Completed 02/08/2010, 11/01, 08/21/2008 MCV4 Completed 06/10/2011, 03/28/2005 Pneumococcal Aged Out 05/21/2022 No longer eligi ble based on patient's age to complete this topic HIV Screening (Preventive Services) Completed 05/06/2023, 09/02/2017 HepA Aged Out No longer eligi ble based on patient's age to complete this topic Procedures Procedure Name Priority Date/Time Associated Diagnosis Comments HIV 1/2 AG/AB 4TH GEN Routine 05/06/2023 3:03 PM CDT Arthralgia, unspecified joint Inverse psoriasis from Last 3 Months or Most Recently Relevant to Health Maintenance Results * HIV 1/2 Ag/Ab 4th Generation (05/06/2023 3:03 PM CDT) HIV 1/2 Antigen/Antib tamra (4th generation) Negative (Non Reactive) Negative (Non Reactive) 05/06/2023 9:11 PM CDT [facility] Comment:HIV-1 p24 Antigen an d HIV-1/HIV-2 Antibody not detected Blood Venipuncture / Unknown 05/06/2023 3:03 PM CDT 05/06/2023 3:04 PM CDT Meri Skelton MD LAB_1 [facility] [address] from Last 3 Months or Most Recently Relevant to Health Maintenance Care Teams Pillowcase Cutter Relationship Specialty Start Date End Date Tiffanie Robledo MD [address] [facility] [id number] [place] [address] PCP - General 07/16/1996
--- OUTSIDE RECORDS SUMMARY | 2024-08-22 08:35 | XMS_ITS | Encounter Summary ---
Author Organization [facility] Address [address] [place] [address] Care Team Providers Care Senior Ssis Developer Name Role Phone Tiffanie Robledo MD Primary Care Provider Lisandra jones Encounter Details Date Type Department Care Team (Latest Contact Info) Description 01/26/1995 Orders Only Pia Berg MD [address] [place], [place] [id number] Social History Tobacco Use Types Packs/Day Years Used Date Smoking Tobacco: Never Assessed Sex and Gender Information Value Date Recorded Sex Assigned at Not on file Gender Identity Not on file Sexual Orientation Not on file documented as of this encounter Plan of Treatment Not on file documented as of this encounter Visit Diagnoses Not on filedocumented in this encounter Care Teams Senior Ssis Developer Relationship Specialty Start Date End Date Tiffanie Robledo MD [address] [facility] [id number] [place] [address] PCP - General 07/16/1996 documented as of this encounter
--- NOTE | 2024-08-22 09:04 | ED.GENADULT ---
HPI - General Adult General Chief complaint: Headache/Migraine Stated complaint: Migraine x3 days Time Seen by Provider: 08/22/24 08:44 History of Present Illness HPI narrative: patient is c/o 3 day of migraine alfredo. started on Thursday. ALFREDO is better today and maxed out on all meds. continues to be nauseated, neck stiff, dizziness, weakness, photosensitive. normal presentation of alfredo and forehead and eyes located. 33-year-old woman presenting to the emergency department with complaint of a headache. She has maxed out her medications. Does have a history of migraines. This is now the 2nd day of headache. She does have some nausea. She feels like there is a wire being poked into the right upper back. She does think she has a lot of stiffness in the upper back neck muscles. Has been prescribed muscle relaxers before and they do not do a whole lot. Location of her headache though is frontal and not atypical. Is photophobic. No fever. No rashes noted. No focal weakness. Has been referred to neurology. Related Data Home Medications ?Medication ?Instructions ?Recorded ?Confirmed aluminum chloride 20 % topical 1 applic topical QHS 08/04/24 08/22/24 solution (Drysol) azelastine 137 mcg (0.1 %) nasal 2 spray intranasal BID PRN 08/04/24 08/22/24 spray cholecalciferol (vitamin D3) 25 25 mcg PO QDAY 08/04/24 08/22/24 mcg (1,000 unit) capsule estradiol 0.01% (0.1 mg/gram) 1 g vaginal QPM 08/04/24 08/22/24 vaginal cream fluticasone propionate 50 2 spray intranasal QDAY PRN 08/04/24 08/22/24 mcg/actuation nasal spray,suspension (Allergy Relief (fluticasone)) hydrocortisone 2.5 % topical 1 applic topical .QD-BID 08/04/24 08/22/24 ointment isotretinoin 20 mg capsule 20 mg PO DAILY 08/04/24 08/22/24 (Amnesteem) loratadine 10 mg tablet (Claritin) 10 mg PO QDAY PRN 08/04/24 08/22/24 risankizumab-rzaa 150 mg/mL 150 mg subcut Q12W 08/04/24 08/22/24 subcutaneous pen injector (Skyrizi) rizatriptan 10 mg tablet 10 mg PO Q2H PRN 08/04/24 08/22/24 rizatriptan 5 mg disintegrating 5 mg PO Q2H PRN migraine 08/04/24 08/15/24 tablet sulfacetamide sodium-sulfur 10 %-5 1 applic topical .2-3x/week 08/04/24 08/22/24 % (w/w) topical cleanser triamcinolone acetonide 0.1 % 1 applic topical BID PRN 08/04/24 08/22/24 topical ointment Previous Rx's ?Medication ?Instructions ?Recorded hyoscyamine sulfate 0.125 mg 0.125 mg sublingual QID PRN IBS 08/04/24 sublingual tablet pain #30 tabs meloxicam 15 mg tablet 15 mg PO DAILY PRN neck pain #30 08/04/24 tabs omeprazole 20 mg tablet,delayed 20 mg PO QDAY #90 tabs 08/04/24 release ondansetron 4 mg disintegrating 4 mg PO Q8H PRN migraines #30 tabs 08/04/24 tablet topiramate 25 mg capsule,extended 25 mg PO QDAY #30 caps 08/04/24 release 24 hr duloxetine 30 mg capsule,delayed 30 mg PO DAILY #30 caps 08/15/24 release hydroxyzine HCl 25 mg tablet 25 mg PO Q8H PRN anxiety #30 tabs 08/15/24 lamotrigine 100 mg tablet 300 mg (3 x 100 mg) PO QDAY #90 08/15/24 tabs mirtazapine 7.5 mg tablet 7.5 mg PO QPM #30 tabs 08/15/24 Allergies Allergy/AdvReac Type Severity Reaction Status Date / Time No Known Drug Allergies Allergy Verified 08/22/24 08:40 Review of Systems Status of ROS: Reports: 6 or more systems reviewed and unremarkable except as noted in History and below [facility] Medical History History of vulvodynia ?Z87.42 - Personal history of other diseases of the female genital tract (ICD-10) Surgical History H/O ovarian cystectomy ?Z98.890 - Other specified postprocedural states (ICD-10) ?Z87.42 - Personal history of other diseases of the female genital tract (ICD-10) Social History What is your current living situation?: I presently have a place to live Problems where you live: mold In the past 12 months, utilities in danger of being shut off: no In past 12 months, lack of transportation kept you from medical appts, meetings, work, or getting things needed for daily living: no In the past 12 mos, have been you worried that your food would run out before you had money to buy more?: never true In the past 12 mos, the food you bought just didn't last and you didn't have money to buy more?: never true Smoking Status: Never smoker Do you use any of these nicotine containing products: Vaping Products Second hand tobacco smoke exposure: No How often do you have a drink containing alcohol: never AUDIT-C Alcohol total score: 0 Non-prescribed substance use: denies use How often does anyone, including family, friends and others, physically hurt you: never How often does anyone, including family, friends and others, insult or talk down to you: rarely How often does anyone, including family, friends and others, threaten you with harm: never How often does anyone, including family, friends and others, scream or curse at you: never Health Related Social Needs: Inadequate housing (Z59.1) and Other personal risk factors, not elsewhere classified (Z91.89) Exam Narrative: Exam Narrative: Pleasant. Wearing what look to be prescription sunglasses. Head looks to be atraumatic. Neck is supple. No midline neck or back tenderness. She is sore to palpation over paracervical, trapezial and right greater than left periscapular musculature. Moving all extremities without difficulty. Cranial nerves 2-12 are intact. Extremities are well perfused without edema. Const: Vital Signs, click to edit/add: Vital Signs - 24 hr 08/22/24 08:34 Temperature 98.7 F Pulse Rate [Pulse Oximeter] 82 Respiratory Rate 16 Blood Pressure [Ri ght Upper Arm] 110/66 Pulse Oximetry 100 Oxygen Delivery Me thod Room Air Documenting provider has reviewed patient's vital signs: yes Course Vital Signs Vital signs: Initial Vital Signs Temperature 98.7 F 08/22/24 08:34 Temperature Source Temporal Artery Scan 08/22/24 08:34 Pulse Rate 82 08/22/24 08:34 Respiratory Rate 16 08/22/24 08:34 Blood Pressure 110/66 08/22/24 08:34 Blood Pressure Mean 80 08/22/24 08:34 Blood Pressure Position Sitting 08/22/24 08:34 Pulse Oximetry 100 08/22/24 08:34 Oxygen Delivery Method Room Air 08/22/24 08:34 Vital Signs Temperature 98.7 F 08/22/24 08:34 Pulse Rate 82 08/22/24 08:34 Respiratory Rate 16 08/22/24 08:34 Blood Pressure 110/66 08/22/24 08:34 Pulse Oximetry 100 08/22/24 08:34 Oxygen Delivery Method Room Air 08/22/24 08:34 Temperature 98.7 F 08/22/24 08:34 Pulse Rate 82 08/22/24 08:34 Respiratory Rate 16 08/22/24 08:34 Blood Pressure 110/66 08/22/24 08:34 Pulse Oximetry 100 08/22/24 08:34 Oxygen Delivery Method Room Air 08/22/24 08:34 Medications Administered Medications: Discontinued Medications Generic Name Dose Route Start Last Admin Trade Name Reubenq PRN Reason Stop Dose Admin Dexamethasone 10 mg 08/22/24 09:14 08/22/24 09:36 Dexamethasone 10 Mg/Ml Inj IVP 08/22/24 09:15 10 mg ONCE ONE Administration Sodium Chloride 1,000 mls @ 1,000 mls/hr 08/22/24 09:13 08/22/24 10:12 0.9 % Sodium Chloride 1000 Ml IV 08/22/24 10:12 Infused .Q1H ONE Infusion Ketorolac Tromethamine 30 mg 08/22/24 09:13 08/22/24 09:35 Ketorolac 30 Mg/Ml Inj IVP 08/22/24 09:14 30 mg ONCE ONE Administration Ondansetron HCl 4 mg 08/22/24 09:13 08/22/24 09:35 Ondansetron 2 Mg/Ml Inj IVP 08/22/24 09:14 4 mg ONCE ONE Administration Medical Decision Making MDM Narrative Medical decision making narrative: I do not think she has meningitis. Other than headache is not demonstrating meningeal signs. Appears to have lingering headache not inconsistent with prior. She would appreciate some relief of her headache. Does not have to go to the ER for treatment. Uncertain of what works. No red flags otherwise to prompt head imaging. Offered usual medications. IV placed. Given L normal saline. Ketorolac and Zofran. Dexamethasone singular dosing. On reassessment is markedly improved. Minimal remains but she feels she can leave. See patient discharge plan for further discussion I am happy you are feeling better. Try to get in a little heart pumping exercise daily. Get quality and regular sleep. Focus on hydration. Follow-up with neurology as planned Discharge Plan Discharge Clinical Impression: Migraine Patient Disposition: Home, Self-Care Instructions: Migraine Headache (ED) Additional Instructions: I am happy you are feeling better. Try to get in a little heart pumping exercise daily. Get quality and regular sleep. Focus on hydration. Follow-up with neurology as planned Prescriptions: No Action hydroxyzine HCl 25 mg tablet 25 mg PO Q8H PRN (Reason: anxiety) Qty: 30 4RF duloxetine 30 mg capsule,delayed release(DR/EC) 30 mg PO DAILY Qty: 30 1RF mirtazapine 7.5 mg tablet 7.5 mg PO QPM Qty: 30 1RF lamotrigine 100 mg tablet 300 mg PO QDAY Qty: 90 1RF estradiol 0.01 % (0.1 mg/gram) cream 1 g vaginal QPM Drysol 20 % solution 1 applic topical QHS azelastine 137 mcg (0.1 %) spray,non-aerosol 2 spray intranasal BID PRN Rx Instructions: administer into each nostril fluticasone propionate [Allergy Relief (fluticasone)] 50 mcg/actuation spray,suspension 2 spray intranasal QDAY PRN Rx Instructions: administer into each nostril sulfacetamide sodium-sulfur 10-5 % (w/w) cleanser 1 applic topical .2-3x/week Skyrizi 150 mg/mL pen injector 150 mg subcut Q12W hydrocortisone 2.5 % ointment 1 applic topical .QD-BID loratadine [Claritin] 10 mg tablet 10 mg PO QDAY PRN triamcinolone acetonide 0.1 % ointment 1 applic topical BID PRN cholecalciferol (vitamin D3) 25 mcg (1,000 unit) capsule 25 mcg PO QDAY isotretinoin [Amnesteem] 20 mg capsule 20 mg PO DAILY rizatriptan 10 mg tablet 10 mg PO Q2H PRN hyoscyamine sulfate 0.125 mg tablet, sublingual 0.125 mg sublingual QID PRN (Reason: IBS pain) Qty: 30 5RF meloxicam 15 mg tablet 15 mg PO DAILY PRN (Reason: neck pain) Qty: 30 5RF omeprazole 20 mg tablet,delayed release (DR/EC) 20 mg PO QDAY Qty: 90 3RF ondansetron 4 mg tablet,disintegrating 4 mg PO Q8H PRN (Reason: migraines) Qty: 30 3RF topiramate 25 mg capsule,extended release 24hr 25 mg PO QDAY Qty: 30 1RF rizatriptan 5 mg tablet,disintegrating 5 mg PO Q2H PRN (Reason: migraine) Follow Up/Referrals: Sameera Pineda MD [Primary Care Provider] - Stand Alone Forms: [facility] Info Instructions
[2024-08-22] MEDS: 0.9 % SODIUM CHLORIDE 1000 ml 1,000 ML IV (09:34)
[2024-08-22] MEDS: ONDANSETRON 2 MG/ML inj 4 MG IVP (09:35)
[2024-08-22] MEDS: KETOROLAC 30 MG/ML inj IVP (09:35)
[2024-08-22] MEDS: dexAMETHasone 10 MG/ML inj IVP (09:36)
--- OUTSIDE RECORDS SUMMARY | 2024-08-22 09:48 | XMS_ITS | Clinical Summary ---
Author Organization [facility] Address [address], [place] [address] Care Team Providers Care Auxiliary Engineer Name Role Phone Tiffanie Robledo MD Primary Care Provider Lisandra jones Source Comments You are receiving this document as you are listed as the primary care provider,follow-up provider, or the patient has been referred to you for consultation.This is in compliance with the Medicare and[facility] EHR Incentive Program,which states Providers who transition their patient to another setting of careor provider of care or refers their patient to another provider of care shouldprovide summary care record for each transition of care or referral. [place] Allergies No known active allergies Medications Medication [...] subcutaneously every 12 weeks. 02/11/2023 Active rizatriptan (MAXALT-SERVICE LIAISON REPRESENTATIVE) [address] 1 Tablet [...] Negative (Non Reactive) 05/06/2023 9:11 PM CDT [facility] Comment:HIV-1 p24 Antigen an d HIV-1/HIV-2 Antibody not detected Blood Venipuncture / Unknown 05/06/2023 3:03 PM CDT 05/06/2023 3:04 PM CDT Meri Skelton MD LAB_1 [facility] [address] from Last 3 Months or Most Recently Relevant to Health Maintenance Care Teams Auxiliary Engineer Relationship Specialty Start Date End Date Tiffanie Robledo MD [address] [facility] [id number] [place] [address] PCP - General 07/16/1996
--- OUTSIDE RECORDS SUMMARY | 2024-08-22 09:49 | XMS_ITS | Clinical Summary ---
Author Organization [facility] Address [address] [facility] [place] [address] Care Team Providers Care Critical Care Nurse Specialist Name Role Phone Sameera Pineda MD Primary Care Provider [phone] Allergies No known active allergies Medications norethindrone [...] on file Legal Sex Female 3:07 AM SENIOR SOFTWARE QA ENGINEER Gender Identity Not on file Sexual Orientation Not on file Last Filed Vital Signs Vital Sign Reading Time Taken Comments Blood Pressure 113/57 07/05/2020 4:18 PM SENIOR SOFTWARE QA ENGINEER Pulse 83 07/05/2020 4:00 PM SENIOR SOFTWARE QA ENGINEER Temperature 37.1 C (98.8 F) 07/05/2020 3:45 PM SENIOR SOFTWARE QA ENGINEER Respiratory Rate 14 07/05/2020 4:18 PM SENIOR SOFTWARE QA ENGINEER Oxygen Saturation 99% 07/05/2020 4:18 PM SENIOR SOFTWARE QA ENGINEER Inhaled Oxygen Concentration - - Weight 57.3 kg (126 lb 4.8 oz) 07/05/2020 10:56 AM SENIOR SOFTWARE QA ENGINEER Height 170.2 cm (5' 7) 07/05/2020 10:56 AM SENIOR SOFTWARE QA ENGINEER Body Mass Index 19.78 07/05/2020 10:56 AM SENIOR SOFTWARE QA ENGINEER Plan of Treatment Health Maintenance Due Date [...] Advance Directives For more information, please contact: [phone] Healthcare Agents on File Name Relationship Healthcare Agent Relationship Communication Saranya Rios Grandparent Fourth Alterna Health Care Agent Care Teams Critical Care Nurse Specialist Relationship Specialty Start Date End Date Sameera Pineda MD [facility] [address] [place] [address] PCP - General 07/03/20
--- OUTSIDE RECORDS SUMMARY | 2024-08-22 09:49 | XMS_ITS | Encounter Summary ---
Author Organization [facility] Address [address] [place] [address] Care Team Providers Care Silk Examiner Name Role Phone Tiffanie Robledo MD Primary Care Provider Lisandra jones Encounter Details Date Type Department Care Team (Latest Contact Info) Description 11/11/1994 Orders Only Tiffanie Robledo MD [address] [facility] [id number] [place] [address] Social History Tobacco Use Types Packs/Day Years Used Date Smoking Tobacco: Never Assessed Sex and Gender Information Value Date Recorded Sex Assigned at Not on file Gender Identity Not on file Sexual Orientation Not on file documented as of this encounter Plan of Treatment Not on file documented as of this encounter Visit Diagnoses Not on filedocumented in this encounter Care Teams Silk Examiner Relationship Specialty Start Date End Date Tiffanie Robledo MD [address] [facility] [id number] [place] [address] PCP - General 07/16/1996 documented as of this encounter
--- OUTSIDE RECORDS SUMMARY | 2024-08-22 09:49 | XMS_ITS | Clinical Summary ---
Author Organization web care [employer] [facility] Address [place], [place] [address] Care Team Providers Care Sample Tester Name Role Phone Sameera Pineda MD Primary [...] 137 mcg/actuation (ASTELIN) nasal spray Inhale 1 [place] into affected nostril(s) 2 times daily if [...] meal. 90 Tablet 02/02/20 24 Active rizatriptan (Maxalt-PRINCIPAL ANDROID DEVELOPER) 5 mg disintegrating tabletIndications: Migraine with aura, [...] Department Care Team Description 08/22/2024 Nurse Triage [facility] [address] [place] [address] Sameera Pineda MD Headache 08/22/2024 Telephone [facility] [address] [place] [address] Sameera Pineda MD Referral (Migraines ) 08/04/2024 Refill [facility] [address] [place] [address] Rosie Botello NP Refill Request (Lamotrigine) 07/21/2024 3:00 PM CENTRIFUGAL MACHINE TENDER Telemedicine [facility] [address] [place] [address] Rosie Botello NP Follow Up (Appt not completed today- pt requested refills to bridge to appt with new psychiatry provider in 3 weeks) 07/21/2024 Travel 07/21/2024 Telephone [facility] [address] [place] [address] Rosie Botello NP Concerns 07/12/2024 10:20 AM CENTRIFUGAL MACHINE TENDER Office Visit [facility] [address] [place] [place] [address] Get Barry MD Follow Up (Follow up migraines ) 07/11/2024 Travel 07/02/2024 Refill [facility] [address] [place] [address] Rosie Botello NP Refill Request (Duloxetine) 06/11/2024 3:35 PM CENTRIFUGAL MACHINE TENDER Office Visit [facility] [address] [place] [address] Tatiana White NP Shoulder Injury 06/11/2024 Travel 06/10/2024 Telephone [facility] [address] [place] [address] Rosie Botello NP Follow Up 06/02/2024 1:30 PM CDT Telemedicine [facility] [address] [place] [address] Rosie Botello NP Telehealth; Medication Management 06/01/2024 Travel 05/25/2024 2:20 PM CDT Office Visit [facility] [address] [place] [address] Get Barry MD Consult (Migraine with aura [...] on file Legal Sex Female 5:27 AM CENTRIFUGAL MACHINE TENDER Gender Identity Not on file Sexual Orientation Not on file Occupation Industry Job Start Date Job End Date student -- [employer] Not on file Not on file Not on file Obstetrics History Para Term AB IAB SAB Ectopic Multiple Livin g Live Births 0 0 0 0 0 0 0 0 0 0 Last Filed Vital Signs Vital Sign Reading Time Taken Comments Blood Pressure 112/73 07/12/2024 10:18 AM CENTRIFUGAL MACHINE TENDER Pulse 97 07/12/2024 10:18 AM CENTRIFUGAL MACHINE TENDER Temperature 36.3 C (97.3 F) 06/11/2024 3:52 PM CENTRIFUGAL MACHINE TENDER Respiratory Rate 16 06/11/2024 3:52 PM CENTRIFUGAL MACHINE TENDER Oxygen Saturation 100% 07/12/2024 10:18 AM CENTRIFUGAL MACHINE TENDER Inhaled Oxygen Concentration - - Weight 57.7 kg (127 lb 1.6 oz) 07/12/2024 10:18 AM CENTRIFUGAL MACHINE TENDER Height 167.6 cm (5' 6) 01/06/2024 10:14 AM CDT Body Mass Index 20.51 01/06/2024 10:14 AM CDT Plan of Treatment Upcoming Encounters Date Type Department Care Team (Late st Contact Info) Description 08/24/2024 11:30 AM CENTRIFUGAL MACHINE TENDER Telemedicine [facility] [address] [place] [address] Rosie Botello NP [address] [place] [address] Health Maintenance Due Date Last Done Comments [...] ANTI HIV 1/2 Routine 09/02/2017 1:53 PM CENTRIFUGAL MACHINE TENDER Screen for STD (sexually transmitted disease) from Last 3 Months or Most Recently Relevant to Health Maintenance Results * HPV HIGH RISK (02/04/2023 2:48 PM CDT) TYPE 16 Negative Negative 02/11/2023 11:32 AM CDT [facility] TYPE 18 Negative Negative 02/11/2023 11:32 AM CDT [facility] OTHER HIGH RISK TYPES Negative Negative 02/11/2023 11:32 AM CDT [facility] Other (Cervical) Non-Blood / Unknown 02/04/2023 2:48 PM CDT 02/05/2023 2:02 PM CDT Narrative [facility] - 02/11/2023 11:32 AM CDT HPV types 16, 18, 31, 33, 35, 39, 45, 51, 52, 56, 58, 59, 66 and 68 DNA were undetectable or below the pre-set threshold. Methodology: Emil Adria 4800 HPV Test Sameera Pineda MD MICROBIOLOGY Final Resul t Performing Organization Address City/[facility]/ZIP Co de Phone Number [facility] [address] [place] [address], * ANTI HCV (11/12/2018 9:25 AM CDT) HEPATITIS C ANTIBODY Non-React maria alejandra Non-React maria alejandra 11/12/2018 4:05 PM CDT [facility] Comment:Antibodies to HCV no t detected; does not exclude the possibility of exposure to HCV. Blood BLOOD SPECIMEN / Unknown Venipuncture / Unknown 11/12/2018 9:25 AM CDT 11/12/2018 9:25 AM CDT Sameera Pineda MD SEND OUTS Final Resul t [facility] [address] [place] [address], * ANTI HIV 1/2 (09/02/2017 1:53 PM CENTRIFUGAL MACHINE TENDER) HIV-1/HIV-2 ANTIBODY Non-Reacti ve Non-Reacti ve 09/02/2017 8:18 PM CENTRIFUGAL MACHINE TENDER [facility] Blood BLOOD SPECIMEN / Unknown Venipuncture / Unknown 09/02/2017 1:53 PM CENTRIFUGAL MACHINE TENDER 09/02/2017 1:53 PM CENTRIFUGAL MACHINE TENDER Narrative [facility] - 09/02/2017 8:18 PM CENTRIFUGAL MACHINE TENDER HIV-1 p24 and HIV-1/HIV-2 Ab not detected us Lu SHAH SEND OUTS Final Resu lt Performing Organization Address City/[facility]/ZIP Co de Phone Number [facility] [address] [place] [address], from Last 3 Months or Most Recently [...] with C. diff symptoms. 02/12/2023 02/12/2023 Insurance [facility] [place] ONLY Advance Directives * [...] 4:21 PM 09/24/2009 2:52 PM Care Teams Sample Tester Relationship Specialty Start Date End Date [place] [address] PCP - General Family Practice 01/03/20
--- OUTSIDE RECORDS SUMMARY | 2024-08-22 09:49 | XMS_ITS | Referral Summary ---
Author Organization [facility] Address [address] [place] [address] Care Team Providers Care Card Dealer Name Role Phone Sameera Pineda MD Primary Care Provider Allergies No known active allergies Medications norethindrone [...] on file Legal Sex Female 3:07 AM LOCAL OPERATOR Gender Identity Not on file Sexual Orientation Not on file Last Filed Vital Signs Vital Sign Reading Time Taken Comments Blood Pressure 113/57 07/05/2020 4:18 PM LOCAL OPERATOR Pulse 83 07/05/2020 4:00 PM LOCAL OPERATOR Temperature 37.1 C (98.8 F) 07/05/2020 3:45 PM LOCAL OPERATOR Respiratory Rate 14 07/05/2020 4:18 PM LOCAL OPERATOR Oxygen Saturation 99% 07/05/2020 4:18 PM LOCAL OPERATOR Inhaled Oxygen Concentration - - Weight 57.3 kg (126 lb 4.8 oz) 07/05/2020 10:56 AM LOCAL OPERATOR Height 170.2 cm (5' 7) 07/05/2020 10:56 AM LOCAL OPERATOR Body Mass Index 19.78 07/05/2020 10:56 AM LOCAL OPERATOR Plan of Treatment Not on file Advance Directives For more information, please contact: [phone] Healthcare Agents on File Name Relationship Healthcare Agent Relationship Communication Saranya Gabriel Grandparent Fourth [place] te Health Care Agent Care Teams Card Dealer Relationship Specialty Start Date End Date Sameera Pineda MD [facility] [address] [place] [address] PCP - General 07/03/20
--- OUTSIDE RECORDS SUMMARY | 2024-08-22 09:49 | XMS_ITS | Encounter Summary ---
Author Organization [facility] Address [address] [place] [address] Care Team Providers Care Healthcare Manager Name Role Phone Tiffanie Robledo MD Primary Care Provider Lisandra jones Encounter Details Date Type Department Care Team (Latest Contact Info) Description 01/26/1995 Orders Only Pia Berg MD [address] [place], [place] [id number] Social History Tobacco Use Types Packs/Day Years Used Date Smoking Tobacco: Never Assessed Sex and Gender Information Value Date Recorded Sex Assigned at Not on file Gender Identity Not on file Sexual Orientation Not on file documented as of this encounter Plan of Treatment Not on file documented as of this encounter Visit Diagnoses Not on filedocumented in this encounter Care Teams Healthcare Manager Relationship Specialty Start Date End Date Tiffanie Robledo MD [address] [facility] [address] [place] [address] PCP - General 07/16/1996 documented as of this encounter
== END 2024-08-22 11:13 | disposition home or self-care (01) ==
PROVIDERS: Emergency Provider Family Medicine; PCP Family Medicine
DX: G43.909 Migraine, unspecified, not intractable, without status migrainosus (principal)
CPT/HCPCS: 96374; 96375; 99284; J1100; J1885; J2405; J7030

== ENCOUNTER 2025-03-08 10:30 | Outpatient (RCR) | payer MEDICAID, SELFPAY | END 2025-04-11 17:26 | disposition home or self-care (01) | PROVIDERS: PCP Family Medicine; Visit Provider Family Medicine | DX: M54.2 Cervicalgia (principal); G89.29 Other chronic pain; M25.562 Pain in left knee; R10.2 Pelvic and perineal pain; N39.46 Mixed incontinence; Z51.89 Encounter for other specified aftercare | CPT/HCPCS: 97110; 97163 ==

== ENCOUNTER 2025-08-01 12:01 | Emergency (ER) | payer BC, MEDICAID, SELFPAY ==
[2025-08-01 12:04] VITALS: BP 134/84; PULSE 93; RESP 18; TEMP 36.5; O2SAT 100; BMI 20.6
--- OUTSIDE RECORDS SUMMARY | 2025-08-01 12:07 | XMS_ITS | Clinical Summary ---
Author Organization [facility] Address [address], [place] [address] Care Team Providers Care Dredge Operator Supervisor Name Role Phone Tiffanie Robledo MD Primary Care Provider Lisandra jones Source Comments You are receiving this document as you are listed as the primary care provider,follow-up provider, or the patient has been referred to you for consultation.This is in compliance with the Medicare andUniversity [facility] Medical Centercaid EHR Incentive Program,which states Providers who transition their patient to another setting of careor provider of care or refers their patient to another provider of care shouldprovide summary care record for each transition of care or referral. [facility] Allergies No known active allergies Medications MedicationSigDispense QuantityRefillsLast FilledStart DateEnd DateStatus mirtazapine (REMERON) 7.5 MG tablet Take 1 Tablet (7.5 mg) by mouth daily at bedtime.Active SKYRIZI PEN 150 MG/ML SOAJ pen injection Inject 1 mL (150 mg) subcutaneously every 12 weeks.02/11/2023ctive rizatriptan (MAXALT-WOOD HEEL CEMENTER) [address] 1 Tablet (5 mg) under tongue two times daily as needed for Headache. 02/04/2023ctive Hyoscyamine Sulfate SL 0.[address] 1 Tablet (0.125 mg) under tongue 4 times daily as needed.02/04/2023ctive hydrOXYzine HCl (ATARAX) 25 MG tablet Take 1-2 Tablets (25-50 mg) by mouth every 6 hours as needed for Anxiety or Itching.02/19/2023ctive benztropine (COGENTIN) 1 MG tablet Take 1 Tablet (1 mg) by mouth as needed.04/10/2023ctive azelastine (ASTELIN) 0.1 % nasal solution Place 2 Sprays into both nostrils two times a day.Active fluticasone propionate (FLONASE) 50 MCG/ACT nasal solution 2 Sprays by Nasal route daily.04/21/2023ctive clobetasol (TEMOVATE) 0.05 % cream Apply topically two times a day.Active Meloxicam (MOBIC) 15 MG tablet Take 1 Tablet (15 mg) by mouth daily. 30 Tablet ctive lamoTRIgine (LAMICTAL) 25 MG tablet Take 1 Tablet (25 mg) by mouth daily.11/06/2023ctive GOODSENSE NICOTINE [address] 1 Lozenge (4 mg) between cheek and gum every 1 hour as needed for Smoking Cessation.08/26/2023ctive DULoxetine (CYMBALTA) 30 MG delayed rlease capsule Take 1 Capsule (30 mg) by mouth daily.5Active ACCUTANE 40 MG capsule Take 1 Capsule (40 mg) by mouth daily.5Active omeprazole (PRILOSEC OTC) 20 MG enteric coated tablet Take 1 Tablet (20 mg) by mouth daily.Active propranolol (INDERAL) 10 MG tablet Take 1 Tablet (10 mg) by mouth as needed.5Active Active Problems ProblemNoted DateDiagnosed DateImmunodeficiency due to drugs01/23/2025 Immunizations ImmunizationAdministration DatesNext XnhYRS5503/08/1993DTP-Hib (Tetramune) 03/11/1994,06/10/1993,04/12/1993Hib (HbOC)03/08/1993MMR03/11/1994OPV, Trivalent (Orimune or tOPV)03/11/1994,04/12/1993,03/08/1993 Social History Tobacco UseTypesPacks/DayYears UsedDateSmoking Tobacco: FormerCigarettes Tobacco Cessation:Counseling Given: Not Answered CommentsUnknownSex and Gender InformationValueDate RecordedSex Assigned at BirthNot on fileLegal QciTjjsbc49/10/2012 4:47 AM CDTGender IdentityNot on fileSexual OrientationNot on file Last Filed Vital Signs Vital SignReadingTime TakenCommentsBlood Amumajdt824/7606 3:20 PM CDT Gwjyb755501/06/2024 3:20 PM CDTTemperature--Respiratory Rate--Oxygen Saturation-- Inhaled Oxygen Concentration--Lfibzy68.3 kg (155 lb)01/06/2024 3:20 PM CDTHeight 169.5 cm (5' 6.75)05/06/2023 1:55 PM CDTBody Mass Index24.4605/06/2023 1:55 PM CDT Plan of Treatment Health MaintenanceDue DateLast DoneCommentsCervical Cancer Screening Due 1992Hep C Screening (Preventive Services)1992Adult Preventive Visit , 01/18/1996, 03/11/1994, Additional history existsHepB Vaccine (1)12/07/2011DTaP/Tdap/Td Vaccine (8 - Tdap), 03/28/2005, 01/05/1998, Additional history existsCOVID-19 Vaccine ( season), 05/23/2021, 09/13/2020, Additional history exists Influenza Vaccine (#1)/, 07/21/2023, 05/21/2022, Additional history existsZoster/Shingles Vaccine (1 of 2)2042Hib VaccineCompleted 03/11/1994, 03/11/1994, 06/10/1993, Additional history existsIPV (Polio) Vaccine Aaakjesin89/05/1998, 03/11/1994, 04/12/1993, Additional history existsHPV NrptvovKzbzplwaj42/09/2010, 11/16/2008, 08/21/2008MCV4 VaccineCompleted 06/10/2011, 03/28/2005Pneumococcal VaccineAged Out05/21/2022No longer eligible based on patient's age to complete this topicHIV Screening (Preventive Services) Cmmtxgkub28/04/2023, 09/02/2017HepA VaccineAged OutNo longer eligible based on patient's age to complete this topicMeningococcal B VaccineAged OutNo longer eligible based on patient's age to complete this topic Procedures Procedure NamePriorityDate/TimeAssociated DiagnosisCommentsHIV 1/2 AG/AB 4TH GEN Pfisrfb7005/06/2023 3:03 PM CDT Arthralgia, unspecified joint Inverse psoriasis from Last 3 Months or Most Recently Relevant to Health Maintenance Results * HIV 1/2 Ag/Ab 4th Generation (05/06/2023 3:03 PM CDT)ComponentValueRef Range Test MethodAnalysis TimePerformed AtPathologist SignatureHIV 1/2 Antigen/Antibody (4th generation)Negative (Non Reactive)Negative (Non Reactive)05/06/2023 9:11 PM CDTMETHODIST LABORATORYComment:HIV-1 p24 Antigen and HIV-1/HIV-2 Antibody not detectedSpecimen (Source)Anatomical Location / LateralityCollection Method / VolumeCollection TimeReceived TimeBlood Venipuncture / Yzgcwcd6305/06/2023 3:03 PM CDT1 3:04 PM CDT Narrative Authorizing ProviderResult TypeResult StatusGachanning Skelton MDLAB_1Final ResultPerforming OrganizationAddressCity/State/ZIP CodePhone Number [facility] [address] from Last 3 Months or Most Recently Relevant to Health Maintenance Insurance Care Teams Team MemberRelationshipSpecialtyStart DateEnd Date Tiffanie Robledo MD [address] [place] [address] PCP - Tqvecwh0907/16/1996
--- OUTSIDE RECORDS SUMMARY | 2025-08-01 12:07 | XMS_ITS | Clinical Summary ---
Author Organization [place] Address [address] [facility] [place] [address] Care Team Providers Care Nuclear Supervising Operator Name Role Phone Sameera Pineda MD Primary Care Provider [phone] Allergies No known active allergies Medications MedicationSigDispense QuantityRefillsLast FilledStart DateEnd DateStatus norethindrone (MICRONOR) 0.35 MG tablet Take 0.35 mg by mouth dailyActive ferrous sulfate (FEROSUL) 325 (65 Fe) MG tablet Take 325 mg by mouth daily (with breakfast)Active hyoscyamine (LEVSIN) 0.125 MG tablet Take 0.125 mg by mouth as neededActive omeprazole 20 MG tablet Take 20 mg by mouth dailyActive mirtazapine (REMERON) 15 MG tablet Take 15 mg by mouth At BedtimeActive ibuprofen (ADVIL/MOTRIN) 600 MG tablet Indications:Status post laparoscopyTake 1 tablet (600 mg) by mouth every 6 hours as needed for other (mild and/or inflammatory pain) 30 tablet 07/05/2020Active acetaminophen (TYLENOL) 325 MG tablet Indications:Status post laparoscopyTake 2 tablets (650 mg) by mouth every 4 hours as needed for mild pain 50 tablet 07/05/2020Active oxyCODONE (ROXICODONE) 5 MG tablet Indications:Status post laparoscopyTake 1-2 tablets (5-10 mg) by mouth every 4 hours as needed for moderate to severe pain 15 tablet 07/05/2020Active Active Problems ProblemNoted DateDiagnosed DatePelvic pain in wbmcpm7207/05/2020Dysmenorrhea 07/05/2020Status post voyeuljcnzc87/03/2020 Social History Tobacco UseTypesPacks/DayYears UsedDateSmoking Tobacco: WfbvmvSmaukgwskf4Qkrm: 06/28/2020Smokeless Tobacco: Never Comments:1 pack a week. Alcohol UseStandard Drinks/WeekCommentsNever0 (1 standard drink = 0.6 oz pure alcohol)AUDIT-CAnswerDate RecordedQ1: How often do you have a drink containing alcohol?Never07/05/2020Average Number of DrinksNot on file07/05/2020Frequency of Binge DrinkingNot on file07/05/2020Adolescent EducationAnswerDate Recorded Getting School Help NeededNot on file3CommentsNoSex and Gender InformationValueDate RecordedSex Assigned at BirthNot on fileLegal SexFemale 06/06/2012 3:07 AM CSTGender IdentityNot on fileSexual OrientationNot on file Last Filed Vital Signs Vital SignReadingTime TakenCommentsBlood Rlilzjsc021/5707/05/2020 4:18 PM SPORTS BOOK BOARD ATTENDANT Ieftu662307/05/2020 4:00 PM BROPewmdjwskts74.1 ??C (98.8 ??F)07/05/2020 3:45 PM CSTRespiratory Yucm112809/05/2019 4:18 PM CSTOxygen Zpxifbazta73%07/05/2020 4:18 PM CSTInhaled Oxygen Concentration--Nonojo89.3 kg (126 lb 4.8 oz)07/05/2020 10:56 AM KGONjzsyh934.2 cm (5' 7)07/05/2020 10:56 AM CSTBody Mass Index19.78 07/05/2020 10:56 AM SPORTS BOOK BOARD ATTENDANT Plan of Treatment Health MaintenanceDue DateLast DoneCommentsANNUAL REVIEW OF HM [id number] 1992 YEARLY PREVENTIVE VISIT/12/2022, 05/23/2021, 04/25/1997, Additional history existsPHQ-2 (once per calendar year)2024DTAP/TDAP/TD VACCINE (8 - Td or Tdap)/, 03/28/2005, 01/05/1998, Additional history existsCOVID-19 VACCINE ( - season)/, 05/23/2021, 09/13/2020, Additional history existsINFLUENZA VACCINE (#1)/, 07/21/2023, 05/21/2022, Additional history existsADVANCE CARE JYUYWHBU17/15/2026 08/17/2020PAP/12/2022, 02/04/2023ZOSTER VACCINE (1 of 2)2042 HEPATITIS B TZNKCJZQjjelfmfi41/08/1999, 07/31/1998, 06/26/1998HPV VACCINE Eeytsseab86/09/2010, 11/16/2008, 08/21/2008MENINGITIS VACCINECompleted 06/10/2011, 03/28/2005HEPATITIS C JLLLKJWQQEginybmpx90/12/2019PNEUMOCOCCAL VACCINE: PEDIATRICS (0 to 5 YEARS) AND AT-RISK PATIENTS (6 to 49 YEARS)Aged Out 05/21/2022No longer eligible based on patient's age to complete this topicHIV ZYMMGMHMESdbocjtrv51/04/2023, 09/02/2017 Insurance Advance Directives For more information, please contact: [phone] NameRelationshipHealthcare Agent RelationshipCommunicationEleCharleston Area Medical Center Alternate Health Care Agent* * Care Teams Team MemberRelationshipSpecialtyStart DateEnd Date Sameera Pineda MD [facility] [address] [place] [address] PCP - Tmvweyd79/1/20
--- OUTSIDE RECORDS SUMMARY | 2025-08-01 12:07 | XMS_ITS | Clinical Summary ---
Author Organization [facility] Address [address] [place] [address] Care Team Providers Care Network Internship Name Role Phone Sameera Pineda MD Primary Care Provider Allergies Active AllergyReactionsCriticalityNoted YmrpVmlvgtamYtqpkd62/09/2011 Medications MedicationSigDispense QuantityRefillsLast FilledStart DateEnd DateStatus tacrolimus 0.1% (PROTOPIC) 0.1 % ointment APPLY TWICE A DAY TO AFFECTED AREA IN ARMPITS. ONCE RESOLVED SLOWLY TAPER OFF AND CONTINUE TWICE WEEKLY FOR DSCJOLFAHTV25/24/2023ctive triamcinolone (ARISTOCORT) 0.1 % ointment APPLY TO AFFECTED AREAS ON ARMS AND GROIN AREA 2 TIMES DAILY FOR 2 WEEKS AT A TIME. TAKE 2 WEEKS OFF AND REPEAT LYTNEQ3310/27/2022ctive loratadine (CLARITIN) 10 mg tablet Take 10 mg by mouth once daily if needed.11/02/2022ctive hydrocortisone (HYTONE) 2.5 % ointment APPLY TO AFFECTED AREAS OF ARMPITS 1-2X DAILY WHEN NOT USING TRIAMCINOLONE. 11/07/2022ctive hyoscyamine sublingual (LEVSIN SL) 0.125 mg subl Indications:Irritable bowel syndrome, unspecified typePLACE 1 TABLET UNDER THE TONGUE 4 TIMES DAILY IF NEEDED FOR COLIC(ABDOMINAL CRAMPS) 368 Tablet 06/05/2023ctive risankizumab-rzaa (Skyrizi) 150 mg/mL subcutaneous pen Inject 150 mg subcutaneous every 12 weeks.02/11/2023ctive meloxicam 15 mg tablet Take 15 mg by mouth once daily if needed.Active azelastine 137 mcg/actuation (ASTELIN) nasal spray Inhale 1 Gypsum into affected nostril(s) 2 times daily if needed for Rhinitis. Active fluticasone (50 mcg per actuation) nasal solution (FLONASE) Inhale 2 Sprays into affected nostril(s) once daily if needed for Rhinitis. Active aluminum chloride (Drysol) 20 % external solution Indications:Hyperhidrosis of axillaApply topically to affected area(s) at bedtime. Apply once daily at bedtime; once excessive sweating has stopped, may decrease to once or twice weekly, or as needed. Wash treated area in the morning. 50 mL 02/02/2024ctive omeprazole 20 mg tablet Indications:Chronic GERDTake 1 Tablet (20 mg) by mouth once daily before a meal. 90 Tablet 02/02/2024ctive ondansetron (ZOFRAN ODT) 4 mg disintegrating tablet Indications:NauseaPlace 1 Tablet (4 mg) on the tongue every 8 hours if needed for Nausea/Vomiting. 20 Tablet 02/29/2024ctive propranoloL (INDERAL) 10 mg tablet Indications:Migraine with aura and with status migrainosus, not intractableTake 1 Tablet (10 mg) by mouth two times daily. If tolerating, increase to 20 mg twice daily. 180 Tablet 5Active Accutane 40 mg capsule 40 mg.5Active hydrOXYzine HCL 25 mg tablet Take 25 mg by mouth every 8 hours if needed. FOR BWNPVIN72/13/2025Active mirtazapine (REMERON) 45 mg tablet Indications:MDD (major depressive disorder), recurrent episode, moderate (HC) Take 1 Tablet (45 mg) by mouth at bedtime. 90 Tablet 5Active lamoTRIgine (LaMICtal) 100 mg tablet Indications:MDD (major depressive disorder), recurrent episode, moderate (HC), Generalized anxiety disorderTake 3 Tablets (300 mg) by mouth once daily. 270 Tablet 5Active DULoxetine (CYMBALTA) 30 mg Delayed-release capsule Indications:MDD (major depressive disorder), recurrent episode, moderate (HC), Generalized anxiety disorderTake 1 Capsule (30 mg) by mouth once daily. 90 Capsule 5Active rizatriptan (MAXALT) 10 mg tablet Indications:Migraine with aura and without status migrainosus, not intractable TAKE 1 TABLET(10 MG) BY MOUTH EVERY 2 HOURS NEEDED FOR MIGRAINE. MAY REPEAT DOSE AFTER 2 HOURS IF SYMPTOMS PERSIST. MAX DOSE: 20 MG PER 24 12 Tablet 5Active Active Problems ProblemNoted DateDiagnosed DateImmunosuppression due to drug smhchdu7009/01/2024 Twazmc4609/01/20249372Fazuuqbnzfclf62/28/2024soriatic zpkpyrxqo19/28/2024Severe bipolar II disorder, depressed, with anxious ggtfxerd95/12/2024Myofascial pain 10/03/2023ipolar 1 disorder, aflgfarpf45/01/2024orderline personality disorder 10/02/2023GAD (generalized anxiety disorder)10/02/2023TSD (post-traumatic stress disorder)10/02/2023annabis use umzgazev17/01/2024Suicidal ideations 3Pap smear for cervical cancer fcniuntdr10/01/2023 Overview (03/06/2023): 01/2015 LSIL 08/2017 ASCUS/HPV negative 11/2018 NIL 01/2020 NIL/HPV negative 01/2023 NIL/HPV negative. Plan: Pap/HPV due 02/2028. IBS (irritable bowel syndrome)3Protein-calorie malnutrition, unspecified kqteumlg14/03/4749Hopgygolbvcp55/03/2020Pelvic pain in female 07/05/2020Status post jpkbpcvunig44/03/2020Vegetarian diet02/21/2013Moderate episode of recurrent major depressive azaulsis44/20/2010Severe major depression without psychotic xwmubsic97/16/2010nxiety state, xzifgzehfuz66/16/2010ipolar 2 disorderPolyp of colon Resolved Problems ProblemNoted DateDiagnosed DateResolved DateIrritable bowel /15/2013 3Parent-child relationship txstkoj33ysthymic kowawzpi90Vegetarian dietDepressive disorder, not elsewhere mqexbosubm58nxiety state, unspecified djustment disorder with mixed anxiety and depressed mood Routine infant or child health check Encounters DateTypeDepartmentCare PrtiLexvacgthdt38/30/2025Nurse Triage [facility] [address] [place] [address] Sameera Pineda MD Blood In Stool06/26/2025Orders Only [facility] Scanner 1 scan: (1-Ord) TAREEN DERM, RT THIGH LESION INJECTION, 06/26/2025from Last 3 Months Immunizations ImmunizationAdministration DatesNext DueCOVID-19 vaccine (Pfizer-BioNTech 30mcg/0.3mL) 12YO+ BIVALENT PF, MDV12COVID-19 vaccine (Pfizer-BioNTech 30mcg/0.3mL) PF, MDV1/,09/13/2020,1DTP03/11/1994,06/10/1993, 04/12/1993,03/08/1993DTaP01/05/1998HIB HbOC (HibTITER)03/11/1994,06/10/1993, 04/12/1993,03/08/1993HPV 9 (Gardasil 9)02/08/2010,11/16/2008,08/21/2008Hepatitis B (Peds)01/08/1999,07/31/1998,06/26/1998Human Papilloma Virus Iysgjlq5102/08/2010, 11/16/2008,08/21/2008INFLUENZA, IIV3 PF (AGE >= 6 MO)09/01/2024Influenza, IIV4 07/21/2023,05/21/2022,05/23/2021,04/25/2020,10/07/2019MENINGOCOCCAL VACCINE 2 VIAL 2MO-55YO (MENVEO)06/10/2011MMR1,03/11/1994Meningococcal Vaccine (Menactra)06/10/2011,03/28/2005Meningococcal Vaccine (Menomune)03/28/2005Oral Polio Rgkkmtf6401/05/1998,03/11/1994,04/12/1993,03/08/1993Pneumococcal Conj 20- valent (Prevnar 20)05/21/2022Tdap03/15/2025,02/22/2015,03/28/2005 Family History Medical HistoryRelationNameCommentsGI DiseaseFatherstomach ulcersOtherFatherback problemsCancer-ovarianMaternal AuntCancer-pancreaticMaternal GrandfatherOther Maternal Grandfatherblood clot, smoker, alcoholicHyperlipidemiaMaternal GrandmotherOtherMaternal Grandmotherpolio, C diff,Cancer-breastMother HyperlipidemiaMotherOtherMotherIBSPsychiatric illnessMotheranxietyOtherPaternal GrandfatherulcersGood HealthPaternal GrandmotherGood HealthSister 3stomach issuesGood HealthSister 4stomach issuesRelationNameStatusCommentsFatherAlive Maternal AuntMaternal GrandfatherAliveMaternal GrandmotherAliveMotherAlive Paternal GrandfatherAlivePaternal GrandmotherAliveSister 1AliveSister 2Alive Sister 3Sister 4 Social History Tobacco UseTypesPacks/DayYears UsedDateSmoking Tobacco: FormerCigarettes0.311.1 06/14/2010 - 08/07/2021mokeless Tobacco: Never Tobacco Cessation:Counseling Given: Yes Comments:2 per week Alcohol UseStandard Drinks/WeekCommentsNot Currently0 (1 standard drink = 0.6 oz pure alcohol)twice per yearPHQ-2AnswerDate RecordedPHQ-2 TOTAL NVLQA443 Social ConnectionsAnswerDate RecordedDo you often feel lonely or isolated from those around you?lcohol UseAnswerDate RecordedHow often do you have a drink containing alcohol?How many drinks containing alcohol do you have on a typical day when you are drinking?How often do you have five or more drinks on one occasion?Financial Resource StrainAnswer Date RecordedDifficulty of Paying Living Mehrohxx009/15/2025Difficulty of Paying Living ExpensesNot on file12/15/2024Food InsecurityAnswerDate RecordedDo you worry your food will run out before you are able to buy more? Transportation NeedsAnswerDate RecordedDoes lack of transportation keep you from medical appointments?Does lack of transportation keep you from work, meetings or getting things that you need?Housing StabilityAnswerDate RecordedWhat is your housing situation today?Interpersonal Safety AnswerDate RecordedAre you being hit, kicked, pushed or yelled at (see row info)?No10/21/2023Interpersonal Safety Abuse 12 - 18Not on file10/21/2023 Interpersonal Safety Ambulatory VulnerabilityNot on file10/21/2023Utilities AnswerDate RecordedDo you have trouble paying for utilities (for example, heat, electricity, water, phone)?CommentsNoSex and Gender InformationValueDate RecordedSex Assigned at BirthNot on fileLegal SexFemale 08/16/2012 5:27 AM CSTGender IdentityNot on fileSexual OrientationNot on file OccupationIndustryJob Start DateJob End Datestudent -- [place] HSNot on file Not on fileNot on file Obstetrics History GravidaParaTermPretermABIABSABEctopicMultipleLivingLive [id number] Last Filed Vital Signs Vital SignReadingTime TakenCommentsBlood Bksbqruz804/ 10:14 AM CDT Codxx701803/15/2025 10:14 AM EEUItjnikkqjfl91.9 ??C (98.5 ??F)12/10/2024 5:22 PM CDTRespiratory Wxoo583112/10/2024 5:22 PM CDTOxygen Zjuxqdprak43%03/15/2025 10:14 AM CDTInhaled Oxygen Concentration--Oscpgl52.6 kg (135 lb 12.8 oz)03/15/2025 10:14 AM QBSFtwnlo807.2 cm (5' 7.4)01/12/2025 1:12 PM CDTBody Mass Index21.02 01/12/2025 1:12 PM CDT Plan of Treatment Health MaintenanceDue DateLast DoneCommentsCOVID-19 vaccine series (2024- season)/, 05/23/2021, 09/13/2020, Additional history exists Influenza Vaccine (#1)501/, 07/21/2023, 05/21/2022, Additional history existsBMI (ht and wt on same day) for age 18+/07/2025, 01/06/2024, 02/04/2023, Additional history existsDepression screening for age 12+608/, 11/11/2024, 09/30/2024, Additional history existsPap test for age 21-6507/807/12/2022, 02/04/2023, 01/03/2020, Additional history existsTetanus xmnhibk63/, 02/22/2015, 03/28/2005 Hepatitis B series for 19+Tgkhpobsw00/08/1999, 07/31/1998, 06/26/1998HPV series for age 9-21Wwymcerxj18/09/2010, 02/08/2010, 11/16/2008, Additional history existsHIV for age 15-07Dimtdjnmy63/31/2018, 06/10/2011Hepatitis C screening for age 18-99Jfduuywns13/12/2019, 06/10/2011Pneumococcal series for age 6-49 Bhssknduv09/19/2022 Procedures Procedure NamePriorityDate/TimeAssociated DiagnosisCommentsSCAN- OPERATIVE/PROCEDURE CEYXBL4706/26/2025 12:00 AM POLLUTION CONTROL TECHNICIAN ASBESTOS BRAKE LINING FINISHER HELPER THIN PREP PAP SCREEN AQXJBLLszlhsz55/05/2023 2:48 PM CDT Cervical cancer screening ANTI UPABwoorsr72/12/2019 9:25 AM CDT Contact with and (suspected) exposure to viral hepatitis ANTI HIV 1/5Hchfthx36/31/2018 1:53 PM POLLUTION CONTROL TECHNICIAN Screen for STD (sexually transmitted disease) from Last 3 Months or Most Recently Relevant to Health Maintenance Results * SCAN-OPERATIVE/PROCEDURE REPORT (06/26/2025 12:00 AM POLLUTION CONTROL TECHNICIAN) Narrative Authorizing ProviderResult TypeResult StatusScannerOTHERFinal Result * ASBESTOS BRAKE LINING FINISHER HELPER THIN PREP PAP SCREEN IMAGED (02/04/2023 2:48 PM CDT)ComponentValueRef RangeTest MethodAnalysis TimePerformed AtPathologist SignatureCase Report Gynecologic Cytology Report ? Case: [id number] ? Authorizing Provider: ??Sameera Pineda MD ? Collected: ? 02/04/2023 1448 ? Ordering Location: ? [facility] ?? Received: ?02/04/2023 1556 ? Clinic ? First Screen: ?Mary Flynn ? Specimen: ?ASBESTOS BRAKE LINING FINISHER HELPER ThinPrep Vial Screening, Cervical ? 03/04/2023 2:33 PM [facility] INTERPRETATION/RESULTNEGATIVE FOR INTRAEPITHELIAL LESION OR MALIGNANCY (NIL) (none)03/04/2023 2:33 PM [facility] at 1433 CDTSPECIMEN ADEQUACY Satisfactory for evaluation Endocervical component xbylcyb6903/04/2023 2:33 PM [facility] REQUESTHPV and PAP03/04/2023 2:33 PM [facility]ORATORYDate of LMPhormonally lvbxlvzusy84/02/2023 2:33 PM [facility]ORYLast Pap Date01/03/2008 2:33 PM [facility]Last Pap PiczepAFV85/02/2023 2:33 PM [facility]ORYAbnormal Pap or [place] Bx in last 5 livihPi8403/04/2023 2:33 PM [facility] Menstrual StatusHormonally Mzivjfnkjm69/02/2023 2:33 PM [facility]ORATORYColp Bx Done MrddoFa7003/04/2023 2:33 PM [facility]ORYAdditional InformationNone given03/04/2023 2:33 PM [facility]ATORYComment: Cytology is screened at [facility] - [address], [place] [address] and [facility] - [address] [place] [address] and [facility] - [address] [place] [address] Interpreted at [facility] - [address], [place] [address] Automated ShcjcoPxzixraldi07/02/2023 2:33 PM [facility]ATORYComment:Specimen processed successfully by automated soda dispenser device, ThinPrep Imaging System, [employer]ANCILLARY TESTING GYNHPV Ordered, Please see separate nyattq3803/04/2023 2:33 PM [facility] LABORATORYNoteThe pap test is a screening technique, not a diagnostic procedure. It is used primarily to screen for squamous cancers and precursor lesions. Published studies have shown that it is subject to both false negative and false positive results. The pap test should not be used as the sole means to diagnose or exclude pre-malignant and malignant lesions.03/04/2023 2:33 PM [facility] LABORATORYSpecimen (Source)Anatomical Location / LateralityCollection Method / VolumeCollection TimeReceived TimeOther (Cervical) Non-Blood / Apdsgym0702/04/2023 2:48 PM CDT02/04/2023 3:56 PM CDT Narrative Authorizing ProviderResult TypeResult StatusSameera Pineda MD PATHOLOGY/CYTOLOGYFinal ResultPerforming OrganizationAddressCity/State/ZIP Code Phone Number [facility] [address] [place] [address], [place] * ANTI HCV (11/12/2018 9:25 AM CDT)ComponentValueRef RangeTest MethodAnalysis TimePerformed AtPathologist SignatureHEPATITIS C ANTIBODYNon-Reactive Non-Jlekmpyg04/12/2019 4:05 PM [facility] Comment:Antibodies to HCV not detected; does not exclude the possibility of exposure to HCV.Specimen (Source)Anatomical Location / LateralityCollection Method / VolumeCollection TimeReceived TimeBloodBLOOD SPECIMEN / Unknown Venipuncture / Axqhuna9811/12/2018 9:25 AM CDT11/12/2018 9:25 AM CDT Narrative Authorizing ProviderResult TypeResult StatusSameera GRANADOSEND OUTSFinal ResultPerforming OrganizationAddressCity/State/ZIP CodePhone Number [facility] [address] [place] [address], [place] * ANTI HIV 1/2 (09/02/2017 1:53 PM POLLUTION CONTROL TECHNICIAN)ComponentValueRef RangeTest Method Analysis TimePerformed AtPathologist SignatureHIV-1/HIV-2 ANTIBODYNon-Reactive Non-Edjcipxn10/31/2018 8:18 PM CSTSH[facility] Specimen (Source)Anatomical Location / LateralityCollection Method / Volume Collection TimeReceived TimeBloodBLOOD SPECIMEN / UnknownVenipuncture / Dykakak8509/02/2017 1:53 PM CST09/02/2017 1:53 PM POLLUTION CONTROL TECHNICIAN Narrative [facility] - 09/02/2017 8:18 PM POLLUTION CONTROL TECHNICIAN HIV-1 p24 and HIV-1/HIV-2 Ab not detected Authorizing ProviderResult TypeResult StatusTa Opal Blevins CONNOR OUTSFinal ResultPerforming OrganizationAddressCity/State/ZIP CodePhone Number [facility] [address] [place] [address], from Last 3 Months or Most Recently Relevant to Health Maintenance Additional Health Concerns InfectionOnset DateLast IndicatedC diff History Comment:+ C diff test on 04/25/2020. Enteric Precautions are not required provided: 1) >3 weeks since positive C diff test; 2) diarrhea resolved; and 3) patient has completed CDI antibiotics (excluding vanco taper). C. diff testing or Enteric Precautions are not required on subsequent admissions unless patient is presenting with C. diff symptoms. / Insurance * Guarantor: Terra Ybarra TypeRelation to PatientDate of BirthPhone Billing AddressPersonal/RzinwqLpiw70/[birth year][id number] [place] [id number] * Guarantor: Maia Ybarra TypeRelation to PatientDate of BirthPhone Billing AddressPersonal/IxuojkXulxft56/17[birth year][id number] [place] [address] * Guarantor: Maia Ybarra TypeRelation to PatientDate of BirthPhone Billing AddressPersonal/DiwrzhCnimse37/17[birth year][id number] [place] [phone] Advance Directives * Full Code (Latest Code Status on File) Date ActivatedDate InactivatedComments10/01/2023 10:13 PM10/05/2023 8:39 PMQuestion AnswerCommentsCode Status Discussion:* Reviewed Preferences * Full Code Date ActivatedDate InactivatedComments02/12/2023 7:50 PM02/17/2023 12:32 PM QuestionAnswerCommentsCode Status Discussion:* Reviewed Preferences * Full Code Date ActivatedDate InactivatedComments01/06/2023 1:17 PM01/06/2023 6:00 PMQuestion AnswerCommentsCode Status Discussion:* Discussed * Full Code Date ActivatedDate InactivatedComments09/17/2009 4:21 09/24/2009 2:52 PM Care Teams Team MemberRelationshipSpecialtyStart DateEnd Date Sameera Pineda MD [address] [place] [address] PCP - GeneralFamily Practice01/03/20
--- OUTSIDE RECORDS SUMMARY | 2025-08-01 12:07 | XMS_ITS | Clinical Summary ---
Author Organization [facility] Address [address] [place] [address] Care Team Providers Care Information Services Assistant Name Role Phone Stefaniamartin Sameera Laz Primary Care Provider [phone] Allergies Active AllergyReactionsCriticalityNoted RtziKyzppwmaWhplks31/09/2011 Medications MedicationSigDispense QuantityRefillsLast FilledStart DateEnd DateStatus estradioL (ESTRACE) 0.01 % (0.1 mg/gram) Vagl cream vaginal cream INSERT 1 GRAM VAGINALLY AT HEFJUKJ27/22/2024Active DULoxetine (CYMBALTA) 30 mg oral delayed release capsule 5Active hydrOXYzine HCl (ATARAX) 25 mg oral tablet TAKE 1 TABLET BY MOUTH EVERY 8 HOURS NEEDED FOR XBNLGSW92/13/2025Active hyoscyamine sulfate (LEVSIN) 0.125 mg sublingual sublingual tablet Active AMNESTEEM 20 mg oral Cap Take 1 capsule (20 mg) by mouth once daily.4Active lamoTRIgine (LAMICTAL) 100 mg oral tablet Take 3 tablets (300 mg) by mouth once daily.5Active propranoloL (INDERAL) 10 mg oral tablet 5Active aluminum chloride (DRYSOL) 20 % Top solution Apply to skin Daily.02/02/2024ctive azelastine 137 mcg/actuation (ASTELIN) 137 mcg (0.1 %) Nasal [place] nasal spray Instill 1 spray into each nostril twice a day as needed.Active fluticasone (FLONASE) 50 mcg/actuation nasal spray Instill 2 sprays into each nostril once a day as needed.04/21/2023ctive meloxicam (MOBIC) 15 mg oral tablet Take 1 tablet (15 mg) by mouth once a day as needed.08/06/2023ctive mirtazapine (REMERON) 15 mg oral tablet Take 1 tablet (15 mg) by mouth Daily.07/03/2024ctive nicotine polacrilex (COMMIT) 4 mg Bucl lozenge 1 lozenge (4 mg) by Buccal route every 1 (one) hour as needed.08/26/2023ctive Omeprazole 20 mg oral TbEC Take 20 mg by mouth Daily.02/02/2024ctive omeprazole (PRILOSEC) 10 mg oral delayed release capsule 05/03/2024ctive ondansetron (ZOFRAN) 4 mg oral ODT Take 1 tablet (4 mg) under the tongue every 8 (eight) hours as needed.02/29/2024 Active rizatriptan (MAXALT) 10 mg oral tablet Take 1 tablet (10 mg) by mouth every 2 (two) hours as needed.02/29/2024ctive SKYRIZI 150 mg/mL SubQ PnIj 5Active fluticasone propion-salmeteroL 113-14 mcg/actuation Inhl AePB 03/03/2023ctive tacrolimus 0.1% (PROTOPIC) 0.1 % Top Oint 5Active Active Problems ProblemNoted DateDiagnosed DateBipolar 2 /11/2025Polyp of colon 01/11/20259031Azrffx22/30/4149Zmmsecngythrk69/28/2024soriatic ikcihzppt43/28/2024 Severe bipolar II disorder, depressed, with anxious bozjnxcd12/12/2024Myofascial pain10/03/2023ipolar 1 disorder, pndhecblo49/01/2024orderline personality axyfozqk44/01/2024annabis use cmjczhus63/01/2024GAD (generalized anxiety disorder)10/02/2023Suicidal /15/2023IBS (irritable bowel syndrome) 09/11/2022rotein-calorie malnutrition, unspecified zffmgkod44/03/2022 Mrgoqgajhikx04/03/2020Pelvic pain in cxgbol9607/05/2020Status post laparoscopy 07/05/2020Vegetarian diet02/21/2013Moderate episode of recurrent major depressive kegxhrsj00/20/2010nxiety state09/18/2009Severe major depression without psychotic llgaxiui02/16/2010 Social History Tobacco UseTypesPacks/DayYears UsedDateSmoking Tobacco: NeverSmokeless Tobacco: Never Tobacco Cessation:Counseling Given: Not Answered Comments:She does vape CommentsUnknownSex and Gender InformationValueDate RecordedSex Assigned at BirthNot on fileLegal RniJprizu71/31/2025 9:31 AM CSTGender IdentityNot on fileSexual OrientationNot on file Last Filed Vital Signs Vital SignReadingTime TakenCommentsBlood Pressure--Pulse--Temperature-- Respiratory Ukps436610/11/2024 8:03 AM CDTOxygen Saturation--Inhaled Oxygen Concentration--Mxoxpt42.3 kg (133 lb)10/11/2024 8:03 AM ZQSSllbtv855.6 cm (5' 6)10/11/2024 8:03 AM CDTBody Mass Index21.47010/11/2024 8:03 AM CDT Plan of Treatment Health MaintenanceDue DateLast DoneCommentsPap Smear1992Anxiety Follow-Up (GERSON-7)1993Depression Follow-Up (PHQ-9)1993Adult Tetanus Booster 5002/22/2015, 03/28/2005COVID-19 Vaccine ( season)2025 05/21/2022, 05/23/2021, 09/13/2020, Additional history existsInfluenza Vaccine (#1)501/, 07/21/2023, 05/21/2022, Additional history existsRSV Vaccines (1 - 1-dose 75+ series)12/07/2067HPV NfjahxcQqukkgode54/09/2010, 11/16/2008, 08/21/2008Hepatitis C UwohzammxYitrgurem68/12/2019Pneumococcal VaccineAged Out05/21/2022No longer eligible based on patient's age to complete this topicMeningococcal B VaccineAged OutNo longer eligible based on patient's age to complete this topic Insurance Care Teams Team MemberRelationshipSpecialtyStart DateEnd Date Sameera Pineda [address] [place] [address] PCP - GeneralFamily Medicine09/15/24
--- NOTE | 2025-08-01 12:47 | ED.GIBLEED ---
HPI - GI Bleed General Chief complaint: GI Bleed Stated complaint: Rectal bleed Time Seen by Provider: 08/01/25 12:25 History of Present Illness HPI Narrative: This 34-year-old female comes in reporting bright red blood on the toilet paper that happened yesterday morning. She states that she feels okay. She has had bleeding per rectum like this in the past and has been diagnosed with inverse psoriasis. She has had psoriasis in very is skin areas and was taking Skyrizi until her insurance would not cover it any longer. She discontinued this about 3 months ago and states that she has not had any psoriasis symptoms since then. She did have a colonoscopy a couple years ago with no acute findings. Related Data Home Medications ?Medication ?Instructions ?Recorded ?Confirmed azelastine 137 mcg (0.1 %) nasal 2 spray intranasal BID PRN 08/04/24 08/01/25 spray fluticasone propionate 50 2 spray intranasal QDAY PRN 08/04/24 08/01/25 mcg/actuation nasal spray,suspension (Allergy Relief (fluticasone)) hydrocortisone 2.5 % topical 1 applic topical .QD-BID PRN 08/04/24 08/01/25 ointment isotretinoin 20 mg capsule 40 mg PO DAILY 08/04/24 08/01/25 (Amnesteem) loratadine 10 mg tablet (Claritin) 10 mg PO QDAY PRN 08/04/24 08/01/25 rizatriptan 10 mg tablet 10 mg PO Q2H PRN 08/04/24 08/01/25 sulfacetamide sodium-sulfur 10 %-5 1 applic topical .2-3x/week 08/04/24 08/01/25 % (w/w) topical cleanser triamcinolone acetonide 0.1 % 1 applic topical BID PRN 08/04/24 08/01/25 topical ointment omeprazole 20 mg tablet,delayed 20 mg PO QDAY PRN 08/01/25 08/01/25 release propanolol 5 mg PO DAILY PRN 08/01/25 08/01/25 spironolactone 50 mg tablet 50 mg PO DAILY 08/01/25 08/01/25 Previous Rx's ?Medication ?Instructions ?Recorded hyoscyamine sulfate 0.125 mg 0.125 mg sublingual QID PRN IBS 08/04/24 sublingual tablet pain #30 tabs meloxicam 15 mg tablet 15 mg PO DAILY PRN neck pain #30 08/04/24 tabs ondansetron 4 mg disintegrating 4 mg PO Q8H PRN migraines #30 tabs 08/04/24 tablet hydroxyzine HCl 25 mg tablet 25 mg PO Q8H PRN anxiety #30 tabs 08/15/24 lamotrigine 100 mg tablet 300 mg (3 x 100 mg) PO QDAY #90 08/15/24 tabs mirtazapine 7.5 mg tablet 7.5 mg PO QPM #30 tabs 08/15/24 methylprednisolone 4 mg tablets in See Rx Instructions PO .COMPLEX 08/01/25 a dose pack (Medrol (Samuel)) #21 ea Allergies Allergy/AdvReac Type Severity Reaction Status Date / Time No Known Drug Allergies Allergy Verified 08/01/25 12:24 Review of Systems Status of ROS: Reports: 10 or more systems reviewed and unremarkable except as noted in History and below Narrative: Constitutional: No fevers, no weight gain or loss. Eyes: No discharge. No vision changes. HENT: No congestion, no sore throat, no ear pain. Cardiovascular: No chest pain, no palpitations. Respiratory: No shortness of breath, no wheezes, no cough. Gastrointestinal: No abdominal pain, no vomiting, no diarrhea. Bright red blood per rectum as described above. Genitourinary: No dysuria, no hematuria. Musculoskeletal: Normal range of motion. Skin: No rashes, no pruritis. Neurological: No dizziness, weakness, sensory change, speech change. Endo/Heme/Allergies: No bruising or bleeding. No polydipsia. Pysch: no suicidality, no anxiety, no insomnia. All other systems reviewed and are negative. [facility] Medical History History of vulvodynia ?Z87.42 - Personal history of other diseases of the female genital tract (ICD-10) Surgical History H/O ovarian cystectomy ?Z98.890 - Other specified postprocedural states (ICD-10) ?Z87.42 - Personal history of other diseases of the female genital tract (ICD-10) Social History What is your current living situation?: I presently have a place to live Problems where you live: mold In the past 12 months, utilities in danger of being shut off: no In past 12 months, lack of transportation kept you from medical appts, meetings, work, or getting things needed for daily living: no In the past 12 mos, have been you worried that your food would run out before you had money to buy more?: never true In the past 12 mos, the food you bought just didn't last and you didn't have money to buy more?: never true Smoking Status: Never smoker Do you use any of these nicotine containing products: Vaping Products Second hand tobacco smoke exposure: No How often do you have a drink containing alcohol: never AUDIT-C Alcohol total score: 0 Non-prescribed substance use: denies use How often does anyone, including family, friends and others, physically hurt you: never How often does anyone, including family, friends and others, insult or talk down to you: rarely How often does anyone, including family, friends and others, threaten you with harm: never How often does anyone, including family, friends and others, scream or curse at you: never Health Related Social Needs: Inadequate housing (Z59.1) and Other personal risk factors, not elsewhere classified (Z91.89) Exam Narrative: Exam Narrative: Constitutional: Well-developed, well-nourished, no acute distress. HEENT: Normocephalic, atraumatic. Neck: Normal range of motion. Nontender. Supple. Heart: Intact distal pulses. Lungs: No chest discomfort. No wheezes, rhonchi, or rales. Abdomen: Nontender. Normal bowel sounds. No rebound tenderness. Back: Normal range of motion. Extremities: Normal range of motion. No injury. Skin: Intact. No rash. Warm. No erythema or pallor. Neurologic: No altered sensation. No weakness. Alert and oriented. Psychiatric: No suicidality. No anxiety or depression. No insomnia. Nursing notes and vitals signs are reviewed. Const: Vital Signs, click to edit/add: Vital Signs - 24 hr 08/01/25 12:04 Temperature 97.7 F Pulse Rate [Pulse Oximeter] 93 Respiratory Rate 18 Blood Pressure [Ri ght Upper Arm] 134/84 Pulse Oximetry 100 Oxygen Delivery Me thod Room Air Course Vital Signs Vital signs: Initial Vital Signs Temperature 97.7 F 08/01/25 12:04 Temperature Source Temporal Artery Scan 08/01/25 12:04 Pulse Rate 93 08/01/25 12:04 Respiratory Rate 18 08/01/25 12:04 Blood Pressure 134/84 08/01/25 12:04 Blood Pressure Mean 100 08/01/25 12:04 Blood Pressure Position Sitting 08/01/25 12:04 Pulse Oximetry 100 08/01/25 12:04 Oxygen Delivery Method Room Air 08/01/25 12:04 Vital Signs Temperature 97.7 F 08/01/25 12:04 Pulse Rate 93 08/01/25 12:04 Respiratory Rate 18 08/01/25 12:04 Blood Pressure 134/84 08/01/25 12:04 Pulse Oximetry 100 08/01/25 12:04 Oxygen Delivery Method Room Air 08/01/25 12:04 Temperature 97.7 F 08/01/25 12:04 Pulse Rate 93 08/01/25 12:04 Respiratory Rate 18 08/01/25 12:04 Blood Pressure 134/84 08/01/25 12:04 Pulse Oximetry 100 08/01/25 12:04 Oxygen Delivery Method Room Air 08/01/25 12:04 MDM - GI Bleed MDM Narrative Medical decision making narrative: This patient comes in with an episode of bright red blood on the toilet. She did show me a picture of this. She states that she is feeling normal and does arrive with normal vital signs. She did have a colonoscopy 2 years ago. She has a history of psoriasis and has been on a course of prednisone which helped her until she started Skyrizi and has been symptom free since then. She discontinued this medicine a few months ago and has been doing well. She has had rectal bleeding in the past and that is what triggered the colonoscopy a couple years ago. I did discuss lab and imaging options today with the patient who declined these for now in a process of shared decision making. She was hoping and trying to get into the clinic but there were no appointments available and was told by the triage nurse to come to the emergency department. I did provide a prescription for Medrol Dosepak assuming that this is a recurrence of her psoriasis and autoimmune disease. I did describe signs and symptoms that would indicate a need for return re-evaluation. Discharge Plan Discharge Clinical Impression: Rectal bleed Patient Disposition: Home, Self-Care Condition: Stable Additional Instructions: Take medication as prescribed. Follow up with MD in clinic for ongoing management or return if symptoms are persistent or worsening. Prescriptions: New methylprednisolone [Medrol (Samuel)] 4 mg tablets,dose pack See Rx Instructions .ROUTE .COMPLEX Qty: 21 0RF Rx Instructions: orally per package directions No Action hydroxyzine HCl 25 mg tablet 25 mg PO Q8H PRN (Reason: anxiety) Qty: 30 4RF mirtazapine 7.5 mg tablet 7.5 mg PO QPM Qty: 30 1RF lamotrigine 100 mg tablet 300 mg PO QDAY Qty: 90 1RF azelastine 137 mcg (0.1 %) spray,non-aerosol 2 spray intranasal BID PRN Rx Instructions: administer into each nostril fluticasone propionate [Allergy Relief (fluticasone)] 50 mcg/actuation spray,suspension 2 spray intranasal QDAY PRN Rx Instructions: administer into each nostril sulfacetamide sodium-sulfur 10-5 % (w/w) cleanser 1 applic topical .2-3x/week hydrocortisone 2.5 % ointment 1 applic topical .QD-BID PRN loratadine [Claritin] 10 mg tablet 10 mg PO QDAY PRN triamcinolone acetonide 0.1 % ointment 1 applic topical BID PRN isotretinoin [Amnesteem] 20 mg capsule 40 mg PO DAILY rizatriptan 10 mg tablet 10 mg PO Q2H PRN hyoscyamine sulfate 0.125 mg tablet, sublingual 0.125 mg sublingual QID PRN (Reason: IBS pain) Qty: 30 5RF meloxicam 15 mg tablet 15 mg PO DAILY PRN (Reason: neck pain) Qty: 30 5RF ondansetron 4 mg tablet,disintegrating 4 mg PO Q8H PRN (Reason: migraines) Qty: 30 3RF spironolactone 50 mg tablet 50 mg PO DAILY propanolol 5 mg PO DAILY PRN Patient Comments: migraines omeprazole 20 mg tablet,delayed release (DR/EC) 20 mg PO QDAY PRN Follow Up/Referrals: Peter Santo MD [Primary Care Provider, Family Practice] Stand Alone Forms: [employer] Info Instructions
== END 2025-08-01 13:02 | disposition home or self-care (01) ==
LOC: ED 13:01
PROVIDERS: Emergency Provider Emergency Medicine Emergency Medical Services; PCP Family Medicine
DX: K62.5 Hemorrhage of anus and rectum (principal)
CPT/HCPCS: 99283; 99284